=== PATIENT | female | born 1945 | race African-American/Black ===

== ENCOUNTER 2018-04-05 17:06 | Inpatient (IN) ==
[2018-04-05] MEDS ORDERED: Sodium Phosphate Inj 30 MMOL in Sodium Chlor 0.9% Inj 250 ML IV.SIG PRN (18:01)
[2018-04-05] MEDS ORDERED: Potassium Phosphate Inj 30 MMOL in Sodium Chlor 0.9% Inj 250 ML IV.SIG PRN (18:01)
[2018-04-05] MEDS ORDERED: Potassium Chloride Liq 20 MEQ/15 ML UDC PO PRN ×2 (18:01)
[2018-04-05] MEDS ORDERED: Magnesium Sulfate Inj 4 GM in Sodium Chlor 0.9% Inj 92 ML IV.SIG PRN (18:01)
[2018-04-05] MEDS ORDERED: Potassium Phosphate 500 MG Soluble Tablet PO PRN ×2 (18:01)
[2018-04-05] MEDS ORDERED: Magnesium Sulfate Inj 2 GM in Sodium Chlor 0.9% Inj 96 ML IV.SIG PRN (18:01)
[2018-04-05] MEDS ORDERED: Magnesium Oxide 400 MG Tablet PO PRN (18:01)
[2018-04-05] MEDS ORDERED: Potassium Chlor 40 mEq Premix 40 MEQ/100 ML PIGGYBACK IV.SIG PRN ×2 (18:01)
[2018-04-05] MEDS ORDERED: Bisacodyl 10 MG Supp RECTAL PRN (18:01)
[2018-04-05] MEDS ORDERED: Labetalol HCl Inj 100 MG/20 ML Vial IV.PUSH PRN (18:01)
[2018-04-05] MEDS ORDERED: Acetaminophen 325 MG Tablet PO PRN (18:01)
[2018-04-05] MEDS ORDERED: Metoprolol Inj 5 MG/5 ML Vial IV.PUSH PRN (18:01)
[2018-04-05] MEDS ORDERED: Dextrose 50% in Water 50 ML Vial IV.PUSH PRN (18:01)
[2018-04-05] MEDS ORDERED: niCARdipine Inj 25 MG in Sodium Chlor 0.9% Inj 240 ML IV.CONT PRN (18:15)
--- NOTE | 2018-04-05 18:43 | P.HPCC ---
History of Present Illness Service: Critical care medicine Primary Care Physician: UNKNOWN Chief Complaint: weakness History of Present Illness: 73yF with history of HTN but does not take any meds who presented with new acute onset right arm and leg weakness and mild confusion to OSH. Found to have hyperdense area on head CT concerning for aneurysm vs. localized spontaneous SAH. 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 Transferred emergently to [facility] for neurosurgery consultation. On arrival to our facility, she had a SBP of 203 mmHg. She was immediately started on nicardipine infusion with prn labetalol to bring this under 130 mmHg. Patient denies chest pain, sob, fever, chills, nausea , vomiting. does state her sister had a brain aneurysm that ruptured. remainder ROS negative. PMHx: HTN, uncontrolled, no meds PSHx: hysterectomy, BTL FHx: sister with cerebral aneurysm, ruptured Inpatient Certification: I certify that the inpatient services were ordered in accordance with Medicare regulations governing the order. This includes certification that hospital inpatient services are reasonable and necessary and in the case of services not specified as inpatient-only under 42 CFR 419.22(n), that they are appropriately provided as inpatient services in accordance to with the 2-midnight benchmark under 43 CFR 412.3(e) Estimated Total Length of Stay (Days): 7 Plans for Post Hospital Care: Not yet determined Review of Systems All other systems reviewed negative except as stated in [facility]PI [facility] - History History Provided By: Patient, Family Member, Medical Record - Social History I have reviewed the patient's Social History: Yes Medications and Allergies Active Medications: Active Medications Acetaminophen (Tylenol) 650 mg PO Q6H PRN PRN Reason: TEMPERATURE > 101 F Albuterol (Duoneb Neb (Prn)) 1 ampul NEB Q2HR NEB PRN PRN Reason: WHEEZING Bisacodyl (Dulcolax Supp) 10 mg RECTAL DAILY PRN PRN Reason: if no BM in last 24h Chlorhexidine Gluconate (Chlorhexidine 2% Cloth) 3 pack TOPICAL DAILY@0400 THEA Stop: 04/11/18 03:59 Chlorhexidine Gluconate (Chlorhexidine 2% Cloth) 3 pack TOPICAL DAILY@0400 PRN PRN Reason: Extra cloth needed Stop: 04/11/18 03:59 Dextrose (D50w Vial) 50 ml IV.PUSH UNSCH PRN PRN Reason: PER HYPOGLYCEMIA PROTOCOL Glucagon (Glucagon Inj) 1 mg OTHER PRN PRN PRN Reason: for Hypoglycemia Protocol Hydralazine HCl (Apresoline Inj) 10 mg IV.PUSH Q30M PRN PRN Reason: sbp > 160, dbp > 95 Magnesium Sulfate 4 gm/ Sodium (Chloride) 100 mls @ 50 mls/hr IV.SIG UNSCH PRN PRN Reason: For Magnesium 0.9 - 1.1 mg/dL Magnesium Sulfate 2 gm/ Sodium (Chloride) 100 mls @ 50 mls/hr IV.SIG UNSCH PRN PRN Reason: For Magnesium 1.2 - 1.6 mg/dL Nicardipine HCl 25 mg/ Sodium (Chloride) 250 mls @ 150 mls/hr IV.CONT TITRATE PRN; Protocol PRN Reason: Per Protocol Sodium Chloride (Ns Inj) 1,000 mls @ 84 mls/hr IV.CONT .[id number] THEA Potassium Chloride (Kcl 20 Meq Premix Inj) 20 meq in 100 mls @ 50 mls/hr IV.SIG Q2H PRN PRN Reason: For Potassium 3.3 - 3.5 mEq/L Potassium Chloride (Kcl 40 Meq Premix Inj) 40 meq in 100 mls @ 25 mls/hr IV.SIG UNSCH PRN PRN Reason: For Potassium 3.3 - 3.5 mEq/L Potassium Chloride (Kcl 20 Meq Premix Inj) 20 meq in 100 mls @ 50 mls/hr IV.SIG Q2H PRN PRN Reason: For Potassium 2.8 - 3.2 mEq/L Sodium Phosphate 30 mmol/ (Sodium Chloride) 260 mls @ 42 mls/hr IV.SIG UNSCH PRN PRN Reason: For Phosphorus < 2.5 mg/dL Potassium Chloride (Kcl 40 Meq Premix Inj) 40 meq in 100 mls @ 25 mls/hr IV.SIG Q2H PRN PRN Reason: For Potassium 2.8 - 3.2 mEq/L Potassium Phosphate 30 mmol/ (Sodium Chloride) 260 mls @ 42 mls/hr IV.SIG UNSCH PRN PRN Reason: SEE LABEL COMMENTS Insulin Human Regular (Novolin R Correctional Sugar Inj) 0 units SQ Q6HR THEA; Protocol Labetalol HCl (Trandate Inj) 20 mg IV.PUSH Q20M PRN PRN Reason: sbp > 160 or DBP > 95 Lactulose (Lactulose Liq) 30 ml PO BID THEA Magnesium Oxide (Mag-Ox) 800 mg PO UNSCH PRN PRN Reason: For Magnesium 1.2 - 1.6 mg/dL Metoprolol Tartrate (Lopressor Inj) 5 mg IV.PUSH Q5M PRN PRN Reason: HR > 110 Ondansetron HCl (Zofran Inj) 4 mg IV.PUSH Q6H PRN PRN Reason: NAUSEA OR VOMITING Polyethylene Glycol (Miralax) 17 gm PO BID THEA Potassium Chloride (Kcl Liq) 40 meq PO UNSCH PRN PRN Reason: Potassium level 3.3-3.5 mEq/L Potassium Chloride (Kcl Liq) 40 meq PO UNSCH PRN PRN Reason: POTASSIUM LESS THAN 3.5 Potassium Phosphate (K-Phos Original) 2,000 mg PO Q4H PRN PRN Reason: Phosphorus Less Than 2.5 mg/dL Potassium Phosphate (K-Phos Original) 2,000 mg PO UNSCH PRN PRN Reason: SEE LABEL COMMENTS Senna/Docusate Sodium (Karen-Colace) 1 tab PO BID THEA Sodium Chloride (Ns Flush) 2 ml IV.FLUSH UNSCH PRN PRN Reason: FLUSH AFTER USING IV ACCESS Allergies Allergy/AdvReac Type Severity Reaction Status Date / Time morphine Allergy Severe NAUSEA/VOMI Unverified 10/02/16 13:37 TING tobramycin Allergy Severe Swelling Unverified 10/02/16 13:37 Exam Vital signs: Intake & Output 04/04/18 04/05/18 04/05/18 18:59 06:59 18:59 Weight 74.5 kg Other: Weight On Admission 74.5 kg Narrative: gen: elderly female, sitting in bed. heent: nc. at. perrl. mmm. neck: no jvd. trachea midline. chest: equal chest rise. nc o2. cv: normal rate of 83, regular rhythm. sinus. sbp initially 203 mmHg, I remained at bedside until it was < 130 mmHg with nicardipine infusion. abd: soft, nontender, nondistended. no guarding. extr: distal pulses 2+. no edema. neuro: RASS 0. MAIRA 3/5 in the right upper and lower extremities. 5/5 in left upper and lower extremities. sensation grossly intact. Caprini VTE Risk Assessment Caprini VTE Risk Assessment: Moderate/High Risk (score >= 2) VTE Pharmacological Exception Reason: Intracranial lesions Caprini Risk Assessment Model: Point Value = 1 Point Value = 2 Point Value = 3 Point Value = 5 Age 41-60 Minor surgery BMI > 25 kg/m2 Swollen legs Varicose veins or History of unexplained or recurrent spontaneous Oral contraceptives or hormone replacement Sepsis (< 1 month) Serious lung disease, including pneumonia (< 1 month) Abnormal pulmonary function Acute myocardial infarction Congestive heart failure (< 1 month) History of inflammatory bowel disease Medical patient at bed rest Age 61-74 Arthroscopic surgery Major open surgery (> 45 min) Laparoscopic surgery (> 45 min) Malignancy Confined to bed (> 72 hours) Immobilizing plaster cast Central venous access Age >= 75 History of VTE Family history of VTE Factor V Leiden Prothrombin [id number] Lupus anticoagulant Anticardiolipin antibodies Elevated serum homocysteine Heparin-induced thrombocytopenia Other congenital or acquired thrombophilia Stroke (< 1 month) Elective arthroplasty Hip, pelvis, or leg fracture Acute spinal cord injury (< 1 month) Prophylaxis Regimen: Total Risk Factor Score Risk Level Prophylaxis Regimen 0-1 Low Early ambulation 2 Moderate Order ONE of the following: *Sequential Compression Device (SCD) *Heparin 5000 units SQ BID 3-4 Higher Order ONE of the following medications: *Heparin 5000 units SQ TID *Enoxaparin/Lovenox 40 mg SQ daily (WT < 150 kg, CrCl > 30 mL/min) *Enoxaparin/Lovenox 30 mg SQ daily (WT < 150 kg, CrCl > 10-29 mL/min) *Enoxaparin/Lovenox 30 mg SQ BID (WT < 150 kg, CrCl > 30 mL/min) AND/OR *Sequential Compression Device (SCD) 5 or more Highest Order ONE of the following medications: *Heparin 5000 units SQ TID (Preferred with Epidurals) *Enoxaparin/Lovenox 40 mg SQ daily (WT < 150 kg, CrCl > 30 mL/min) *Enoxaparin/Lovenox 30 mg SQ daily (WT < 150 kg, CrCl > 10-29 mL/min) *Enoxaparin/Lovenox 30 mg SQ BID (WT < 150 kg, CrCl > 30 mL/min) AND *Sequential Compression Device (SCD) Assessment and Plan - Assessment and Plan Plan: Assessment: 73yF with new right-sided weakness and YAQUELIN aneurysm with venous sinus thrombosis. Critically ill with high risk for subarachnoid hemorrhage and . Right-sided weakness left 5.3mm YAQUELIN aneurysm right venous sinus thrombosis right internal jugular thrombosis Hypertensive emergency Plan: - new weaknesses are concerning and are worsening. repeat CTA head/neck with CTV - cardene and labetalol prn for goal sbp < 150 mmhg - q1h neuro checks - hold on anticoagulation until further imaging studies. - OSH CT perfusion negative. - nsgy consulted: Dr. Alexander Admit to ICU. Critically ill with new neuro deficits. Critical care time: 40 minutes, exclusive of separately billable procedures. Procedures - Arterial Line Time out performed: Yes Size (Gauge): 20 Technique used: direct puncture technique Post-Procedure: line sutured into place Patient tolerated procedure: well Complications: none Site: left
[2018-04-05] MEDS: Insulin NovoLIN Regular Correctional Sugar Inj SQ SCH (18:50)
[2018-04-05] MEDS: Sod Chloride 0.9% Inj 1,000 ML IV.CONT SCH (18:51)
[2018-04-05] MEDS ORDERED: Labetalol HCl Inj 20 MG/4 ML Vial ONE ×2 (18:56→19:34)
--- NOTE | 2018-04-05 19:42 | P.CONNS ---
History of Present Illness Service: Neurosurgery Consult date: 04/05/18 Requesting Physician: Chris Freeman Reason for Consult: aneurysm, right sided weakness Primary Care Provider: UNKNOWN Chief Complaint: weakness History of Present Illness: I was asked by Dr. Freeman to see and evaluate 73yF who presented to OSH with new acute onset right arm and leg weakness and mild confusion. 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 Transferred emergently to [facility] for neurosurgery consultation. On arrival to our facility, she had a SBP of 203 mmHg. She was immediately started on nicardipine infusion with prn labetalol to bring this under 130 mmHg. Patient denies chest pain, sob, fever, chills, nausea, vomiting. does state her sister had a brain aneurysm that ruptured. Review of Systems All other systems reviewed negative except as stated in HPI [facility] - History History Provided By: Patient, Family Member, Medical Record Medications and Allergies Active Medications: Active Medications Acetaminophen (Tylenol) 650 mg PO Q6H PRN PRN Reason: TEMPERATURE > 101 F Albuterol (Duoneb Neb (Prn)) 1 ampul NEB Q2HR NEB PRN PRN Reason: WHEEZING Bisacodyl (Dulcolax Supp) 10 mg RECTAL DAILY PRN PRN Reason: if no BM in last 24h Chlorhexidine Gluconate (Chlorhexidine 2% Cloth) 3 pack TOPICAL DAILY@0400 THEA Stop: 04/11/18 03:59 Chlorhexidine Gluconate (Chlorhexidine 2% Cloth) 3 pack TOPICAL DAILY@0400 PRN PRN Reason: Extra cloth needed Stop: 04/11/18 03:59 Dextrose (D50w Vial) 50 ml IV.PUSH UNSCH PRN PRN Reason: PER HYPOGLYCEMIA PROTOCOL Glucagon (Glucagon Inj) 1 mg OTHER PRN PRN PRN Reason: for Hypoglycemia Protocol Hydralazine HCl (Apresoline Inj) 10 mg IV.PUSH Q30M PRN PRN Reason: sbp > 160, dbp > 95 Magnesium Sulfate 4 gm/ Sodium (Chloride) 100 mls @ 50 mls/hr IV.SIG UNSCH PRN PRN Reason: For Magnesium 0.9 - 1.1 mg/dL Magnesium Sulfate 2 gm/ Sodium (Chloride) 100 mls @ 50 mls/hr IV.SIG UNSCH PRN PRN Reason: For Magnesium 1.2 - 1.6 mg/dL Nicardipine HCl 25 mg/ Sodium (Chloride) 250 mls @ 150 mls/hr IV.CONT TITRATE PRN; Protocol PRN Reason: Per Protocol Last Admin: 04/05/18 18:49 Dose: 15 mg/hr, 150 mls/hr Sodium Chloride (Ns Inj) 1,000 mls @ 84 mls/hr IV.CONT .[id number] [facility] Last Admin: 04/05/18 18:51 Dose: 84 mls/hr Potassium Chloride (Kcl 20 Meq Premix Inj) 20 meq in 100 mls @ 50 mls/hr IV.SIG Q2H PRN PRN Reason: For Potassium 3.3 - 3.5 mEq/L Potassium Chloride (Kcl 40 Meq Premix Inj) 40 meq in 100 mls @ 25 mls/hr IV.SIG UNSCH PRN PRN Reason: For Potassium 3.3 - 3.5 mEq/L Potassium Chloride (Kcl 20 Meq Premix Inj) 20 meq in 100 mls @ 50 mls/hr IV.SIG Q2H PRN PRN Reason: For Potassium 2.8 - 3.2 mEq/L Sodium Phosphate 30 mmol/ (Sodium Chloride) 260 mls @ 42 mls/hr IV.SIG UNSCH PRN PRN Reason: For Phosphorus < 2.5 mg/dL Potassium Chloride (Kcl 40 Meq Premix Inj) 40 meq in 100 mls @ 25 mls/hr IV.SIG Q2H PRN PRN Reason: For Potassium 2.8 - 3.2 mEq/L Potassium Phosphate 30 mmol/ (Sodium Chloride) 260 mls @ 42 mls/hr IV.SIG UNSCH PRN PRN Reason: SEE LABEL COMMENTS Insulin Human Regular (Novolin R Correctional Sugar Inj) 0 units SQ Q6HR [facility]; Protocol Last Admin: 04/05/18 18:50 Dose: Not Given Labetalol HCl (Trandate Inj) 20 mg IV.PUSH Q20M PRN PRN Reason: sbp > 160 or DBP > 95 Lactulose (Lactulose Liq) 30 ml PO BID [facility] Magnesium Oxide (Mag-Ox) 800 mg PO UNSCH PRN PRN Reason: For Magnesium 1.2 - 1.6 mg/dL Metoprolol Tartrate (Lopressor Inj) 5 mg IV.PUSH Q5M PRN PRN Reason: HR > 110 Ondansetron HCl (Zofran Inj) 4 mg IV.PUSH Q6H PRN PRN Reason: NAUSEA OR VOMITING Last Admin: 04/05/18 18:48 Dose: 4 mg Polyethylene Glycol (Miralax) 17 gm PO BID THEA Potassium Chloride (Kcl Liq) 40 meq PO UNSCH PRN PRN Reason: Potassium level 3.3-3.5 mEq/L Potassium Chloride (Kcl Liq) 40 meq PO UNSCH PRN PRN Reason: POTASSIUM LESS THAN 3.5 Potassium Phosphate (K-Phos Original) 2,000 mg PO Q4H PRN PRN Reason: Phosphorus Less Than 2.5 mg/dL Potassium Phosphate (K-Phos Original) 2,000 mg PO UNSCH PRN PRN Reason: SEE LABEL COMMENTS Senna/Docusate Sodium (Karen-Colace) 1 tab PO BID THEA Sodium Chloride (Ns Flush) 2 ml IV.FLUSH UNSCH PRN PRN Reason: FLUSH AFTER USING IV ACCESS Allergies Allergy/AdvReac Type Severity Reaction Status Date / Time morphine Allergy Severe NAUSEA/VOMI Unverified 10/02/16 13:37 TING tobramycin Allergy Severe Swelling Unverified 10/02/16 13:37 Exam Vital signs: Intake & Output 04/05/18 04/05/18 04/06/18 06:59 18:59 06:59 Weight 74.5 kg Other: Weight On Admission 74.5 kg - Routine HEENT Exam Head: Present: normocephalic, atraumatic Eye: Present: EOMI, PERRL, normal accommodation ENT: Present: mucous membranes moist, oropharynx clear - Routine Neck Exam Present: full ROM, trachea midline - Routine Respiratory Exam Present: CTA bilaterally - Routine Cardiovascular Exam Present: RRR - Routine Abdominal Exam Present: soft, normoactive bowel sounds - Routine Extremities Exam Present: full ROM, pulses intact, normal capillary refill - Routine Neurological Exam Eyes open spontaneously Pupils react CNII-XII: intact Mildly aphasic Motor: Right hemiparesis 3/5 Snesory: decreased LT, decreased PP Cerebellum: WNL - Detailed Neurological Exam: Coma Scale Eye Opening: Spontaneous Verbal Response: Words Motor Response: Obey commands Benita Coma Scale Total: 13 - Routine Psychiatric Exam Present: unable to assess Results - Laboratory Findings Abnormal lab findings: Abnormal Labs 04/05/18 18:48 POC Glucose 121 H - Diagnostic Findings EKG: report reviewed, image reviewed Additional findings: Head CT and CTA Assessment and Plan - Plan 73 yo female with progressively worsening right sided weakness c/w stroke in evolution CTA shows incidental left distal anterior cerebral aneurysm, doubt focal SAH Admit to ICU HOB to 30 degrees Neuro checks q1hr STAT CTA and CTV to evaluate for arterial occlusion as well as possible transverse sinus thrombosis IR consult for stroke Will follow
--- NOTE | 2018-04-05 20:46 | CT ---
EXAM DATE: 04/05/2018 8:32 PM EST AGE/SEX: 73 years / Female INDICATIONS: Occlusion. CLINICAL DATA: This is the patient's initial encounter. Patient reports that signs and symptoms have been present for 1 day and indicates a pain score of Nonresponsive. MEDICAL/SURGICAL HISTORY: Non-responsive. Non-responsive. RADIATION DOSE: 52.83 CTDI (mGy) COMPARISON: C, CTA HEAD W CONTRAST W 3D, 04/05/2018. . TECHNIQUE: CT of the head without contrast. Using automated exposure control and adjustment of the mA and/or kV according to patient size, radiation dose was kept as low as reasonably achievable to ob tain optimal diagnostic quality images. DICOM format image data is available electronically for revi ew and comparison. FINDINGS: Cerebrum: The ventricles are normal for age. No evidence of midline shift, mass lesion, hemorrhage or acute infarction. No extraaxial fluid collections are seen. Posterior Fossa: The cerebellum and brainstem are intact. The 4th ventricle is midline. The cerebe llopontine angle is unremarkable. Extracranial: The visualized portion of the orbits is intact. Skull: The calvaria is intact. No evidence of skull fracture. CONCLUSION: 1. No acute findings. Chronic white matter ischemic changes. . . Electronically signed by: Deacon Piper MD Board Certified Radiologist 04/05/2018 8:45 PM EST
--- NOTE | 2018-04-05 20:51 | CT ---
EXAM DATE: 04/05/2018 8:31 PM EST AGE/SEX: 73 years / Female INDICATIONS: Occlusion CLINICAL DATA: This is the patient's initial encounter. Patient reports that signs and symptoms have been present for 1 day and indicates a pain score of Nonresponsive. MEDICAL/SURGICAL HISTORY: Non-responsive. Non-responsive. RADIATION DOSE: 19.65 CTDI (mGy) ; Combined studies COMPARISON: No prior exams available for comparison. TECHNIQUE: Volumetric scanning was performed using a multirow detector CT scanner during bolus infus ion of 100 ml Omnipaque 350 (iohexol) nonionic water-soluble contrast as a cumulative dose for multi ple exams. The data was postprocessed with a variety of visualization algorithms including full-vol ume maximum intensity projection, multiplanar sliding thin-slab reformation, curved-planar reformatio n, and surface-rendering techniques. Using automated exposure control and adjustment of the mA and/o r kV according to patient size, radiation dose was kept as low as reasonably achievable to obtain opt imal diagnostic quality images. DICOM format image data is available electronically for review and c omparison. Percent stenosis is calculated using the diameter of the stenotic region over the diameter of the nor mal distal internal carotid artery. FINDINGS: The great vessel origins are patent. Both common carotid arteries are patent. There is flow in the in ternal carotid arteries within the neck bilaterally. No stenosis identified in the carotids bilateral ly. Mild atherosclerotic plaque formation in the carotid bifurcation Left vertebral artery is dominant. Basilar artery is patent. CONCLUSION: 1. Negative for carotid stenosis within the neck. No aneurysm or dissection. Both vertebral arteries are patent. Electronically signed by: Deacon Piper MD Board Certified Radiologist 04/05/2018 8:50 PM EST
--- NOTE | 2018-04-05 20:53 | CT ---
EXAM DATE: 04/05/2018 8:31 PM EST AGE/SEX: 73 years / Female INDICATIONS: Occlusion. CLINICAL DATA: This is the patient's initial encounter. Patient reports that signs and symptoms have been present for 1 day and indicates a pain score of Nonresponsive. MEDICAL/SURGICAL HISTORY: Non-responsive. Non-responsive. RADIATION DOSE: 19.65 CTDI (mGy) ; Combined studies COMPARISON: No prior exams available for comparison. TECHNIQUE: Volumetric scanning was performed using a multi-row detector CT scanner during bolus infu mariza of 100 ml Omnipaque 350 (iohexol) nonionic water-soluble contrast as a cumulative dose for mult iple exams. The data was post processed with a variety of visualization algorithms including full v olume maximum intensity projection, multi-planar sliding thin slab reformation, curved planar reforma tion, and surface rendering techniques. Using automated exposure control and adjustment of the mA an d/or kV according to patient size, radiation dose was kept as low as reasonably achievable to obtain optimal diagnostic quality images. DICOM format image data is available electronically for review an d comparison. FINDINGS: The anterior, middle and posterior cerebral arteries appear patent. Basilar artery is patent. No disc rete aneurysm or dissection. CONCLUSION: 1. No aneurysm or dissection identified in the intracranial vasculature. No discrete occlusions iden tified. Anterior, middle and posterior cerebral arteries appear patent. . . Electronically signed by: Deacon Piper MD Board Certified Radiologist 04/05/2018 8:52 PM EST
--- NOTE | 2018-04-05 21:27 | P.PNCC ---
Critical Care Event Note Code activated: No Narrative: CTA brain and neck repeated and reviewed with Dr. Alexander. No evidence of aneurysm rupture. No evidence of large vessel occlusion to be amenable to endovascular intervention for stroke. Not a candidate for systemic TPA due to time of onset. I discussed CT venous phase with Dr. Piper and there is no definite dural venous thrombosis. Neither presence of aneurysm or location of possible dural venous thrombosis would seem to explain her clinical symptoms. Will obtain MRI and MRV. In view of worsening clinical condition when BP was lowered to 112, will allow permissive hypertension. Although would typically allow permissive hypertension up to 220/120 in acute ischemic stroke, in this circumstance the risk of aneurysm rupture must be considered. In consideration of risk/benefit, would allow permissive hypertension in SBP 160-180 range (per discussion with ). Critical care time: less than 30 mins
[2018-04-05] MEDS: Polyethylene Glycol 3350 17 GM Packet PO SCH (22:26)
[2018-04-05] MEDS: Senna/Docusate Sodium 8.6/50 MG Tablet PO SCH (22:27)
[2018-04-06] MEDS: Insulin NovoLIN Regular Correctional Sugar Inj SQ SCH ×4 (01:35→18:15)
[2018-04-06] MEDS ORDERED: Chlorhexidine Gluconate 2% 1 Pack (2 Cloths) TOPICAL PRN (04:00)
[2018-04-06] MEDS: Chlorhexidine Gluconate 2% 1 Pack (2 Cloths) TOPICAL SCH (04:04)
[2018-04-06 05:40] LABS: Baso # (Auto) 0.1 th/mm3 (0.0-0.2); Baso % (Auto) 0.6 % (0.0-2.0); Eos % (Auto) 0.2 % (0.0-4.0); Hematocrit 42.3 % (35.0-46.0); Hemoglobin 14.3 gm/dL (11.6-15.3); Lymph # (Auto) 2.1 th/mm3 (1.0-4.8); Lymph % (Auto) 23.9 % (9.0-44.0); Mean Corpuscular HGB Conc 33.9 % (32.0-36.0); Mean Corpuscular Hemoglobin 30.1 pg (27.0-34.0); Mean Platelet Volume 8.6 fL (7.0-11.0); Mono # (Auto) 0.7 th/mm3 (0.0-0.9); Mono % (Auto) 8.4 % (0.0-8.0); Neut # (Auto) 5.9 th/mm3 (1.8-7.7); Neut % (Auto) 66.9 % (16.0-70.0); Platelet Count 201 th/mm3 (150-450); Red Blood Count 4.75 mil/mm3 (4.00-5.30); Red Cell Distribution Width 14.6 % (11.6-17.2); White Blood Count 8.8 th/mm3 (4.0-11.0)
[2018-04-06] MEDS: Sod Chloride 0.9% Inj 1,000 ML IV.CONT SCH ×2 (05:51→18:16)
[2018-04-06 06:01] LABS: Carbon Dioxide 28.3 meq/L (21.0-32.0); Magnesium 2.1 mg/dL (1.5-2.5); Potassium 3.2 meq/L (3.5-5.1)
[2018-04-06 06:02] LABS: Phosphorus 3.7 mg/dL (2.5-4.9)
--- NOTE | 2018-04-06 08:20 | P.PNNS ---
Subjective Interval history: 73yF who presented to OSH with new acute onset right arm and leg weakness and mild confusion. 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 Transferred emergently to [facility] for neurosurgery consultation. On arrival to our facility, she had a SBP of 203 mmHg. She was immediately started on nicardipine infusion with prn labetalol to bring this under 130 mmHg. Patient denies chest pain, sob , fever, chills, nausea, vomiting. does state her sister had a brain aneurysm that ruptured. F/U studies here confirm aneurysm, no evidence of sinus thrombosis. 04/06: still weak on the right. continue permissive hypertension. MRI pending. Physical Exam Vital signs: Vital Signs 04/05/18 17:36 04/05/18 17:39 04/05/18 17:47 Temperature Pulse Rate 78 79 Respiratory Rate 16 24 Blood Pressure 144/77 H 148/77 H 154/79 H Pulse Oximetry 98 96 04/05/18 17:50 04/05/18 17:53 04/05/18 17:56 Temperature Pulse Rate 77 85 78 Respiratory Rate 26 H 36 H 22 Blood Pressure 139/76 153/80 H 161/84 H Pulse Oximetry 98 100 97 04/05/18 17:59 04/05/18 18:00 04/05/18 18:02 Temperature Pulse Rate 78 79 76 Respiratory Rate 17 22 21 Blood Pressure 137/72 131/66 Pulse Oximetry 97 97 97 04/05/18 18:04 04/05/18 18:06 04/05/18 18:08 Temperature Pulse Rate 76 76 77 Respiratory Rate 20 22 22 Blood Pressure 127/70 126/62 121/69 Pulse Oximetry 97 97 99 04/05/18 18:10 04/05/18 18:12 04/05/18 18:14 Temperature Pulse Rate 72 80 79 Respiratory Rate 32 H 26 H 24 Blood Pressure 129/66 135/69 126/68 Pulse Oximetry 96 98 99 04/05/18 18:16 04/05/18 18:18 04/05/18 18:20 Temperature Pulse Rate 79 80 81 Respiratory Rate 25 H 20 19 Blood Pressure 128/68 146/65 H 156/60 H Pulse Oximetry 97 99 99 04/05/18 18:22 04/05/18 18:24 04/05/18 18:26 Temperature Pulse Rate 83 85 79 Respiratory Rate 18 24 22 Blood Pressure 121/66 124/69 117/59 L Pulse Oximetry 99 99 99 04/05/18 18:28 04/05/18 19:00 04/05/18 19:16 Temperature Pulse Rate 72 79 79 Respiratory Rate 22 20 20 Blood Pressure 106/57 L 112/84 119/84 Pulse Oximetry 97 97 96 04/05/18 19:23 04/05/18 19:46 04/05/18 20:00 Temperature 98.4 F Pulse Rate 73 76 Respiratory Rate 25 H 23 Blood Pressure 121/68 134/80 Pulse Oximetry 98 97 97 04/05/18 20:48 04/05/18 21:00 04/05/18 21:15 Temperature Pulse Rate 77 79 Respiratory Rate 21 21 Blood Pressure 150/82 H 147/82 H Pulse Oximetry 97 97 97 04/05/18 21:30 04/05/18 21:45 04/05/18 22:00 Temperature Pulse Rate 80 81 76 Respiratory Rate 22 21 15 Blood Pressure 157/89 H 159/89 H 150/78 H Pulse Oximetry 97 97 97 04/05/18 22:15 04/05/18 22:19 04/05/18 22:30 Temperature Pulse Rate 73 77 75 Respiratory Rate 17 16 Blood Pressure 144/83 H 148/90 H Pulse Oximetry 97 97 04/05/18 22:45 04/05/18 23:00 04/05/18 23:15 Temperature Pulse Rate 73 70 74 Respiratory Rate 21 21 17 Blood Pressure 157/88 H 155/85 H 140/82 Pulse Oximetry 97 96 96 04/05/18 23:30 04/05/18 23:45 04/06/18 00:00 Temperature 98.2 F Pulse Rate 69 68 68 Respiratory Rate 20 21 21 Blood Pressure 156/84 H 152/79 H 147/80 H Pulse Oximetry 96 96 96 04/06/18 00:15 04/06/18 00:30 04/06/18 00:45 Temperature Pulse Rate 74 69 69 Respiratory Rate 23 21 21 Blood Pressure 149/81 H 157/82 H 153/82 H Pulse Oximetry 97 97 97 04/06/18 01:00 04/06/18 01:15 04/06/18 01:30 Temperature Pulse Rate 65 61 62 Respiratory Rate 20 18 19 Blood Pressure 150/82 H 160/83 H 158/82 H Pulse Oximetry 97 97 97 04/06/18 01:45 04/06/18 02:00 04/06/18 02:15 Temperature Pulse Rate 65 61 62 Respiratory Rate 20 21 22 Blood Pressure 164/77 H 162/76 H 163/81 H Pulse Oximetry 97 96 96 04/06/18 02:30 04/06/18 02:45 04/06/18 03:00 Temperature Pulse Rate 62 59 L 68 Respiratory Rate 18 19 24 Blood Pressure 165/84 H 163/85 H 149/77 H Pulse Oximetry 97 96 96 04/06/18 03:15 04/06/18 03:30 04/06/18 03:45 Temperature Pulse Rate 63 64 56 L Respiratory Rate 19 24 18 Blood Pressure 169/84 H 172/86 H 179/83 H Pulse Oximetry 97 94 L 94 L 04/06/18 04:00 04/06/18 04:15 04/06/18 04:20 Temperature 98.4 F Pulse Rate 58 L 55 L 55 L Respiratory Rate 19 18 18 Blood Pressure 176/89 H 188/84 H 175/79 H Pulse Oximetry 94 L 94 L 95 04/06/18 04:31 04/06/18 05:00 04/06/18 05:01 Temperature Pulse Rate 60 62 62 Respiratory Rate 22 18 16 Blood Pressure 173/83 H 178/81 H Pulse Oximetry 94 L 96 97 04/06/18 05:31 04/06/18 05:48 04/06/18 06:00 Temperature Pulse Rate 60 60 59 L Respiratory Rate 21 21 19 Blood Pressure 188/83 H 180/81 H Pulse Oximetry 96 96 95 04/06/18 06:01 04/06/18 06:31 Temperature Pulse Rate 59 L 61 Respiratory Rate 19 20 Blood Pressure 173/83 H 181/82 H Pulse Oximetry 95 96 Intake & Output 04/05/18 04/06/18 04/06/18 18:59 06:59 18:59 Intake Total 500 / 500 Output Total 150 / 150 Balance 350 / 350 Weight 74.5 kg 74.4 kg Intake: IV 500 / 500 NS Inj 1,000 ML @ 84 mls/hr IV. 500 / 500 CONT .[id number] [facility] Rx#:[id number] Output: Urine 150 / 150 Other: # Incontinent Voids 3 Date of Last Bowel Movement 04/04/18 Weight On Admission 74.5 kg - Constitutional no acute distress, cooperative - Routine HEENT Exam Head: Present: normocephalic, atraumatic Eye: Present: PERRL, normal accommodation ENT: Present: mucous membranes moist, oropharynx clear - Routine Neck Exam Present: supple, full ROM, trachea midline - Routine Respiratory Exam Present: CTA bilaterally - Routine Cardiovascular Exam Present: irregular rhythm - Routine Abdominal Exam Present: soft, normoactive bowel sounds - Routine Extremities Exam Present: pulses intact, normal capillary refill Comments: Dense right hemiparesis - Routine Skin Exam Present: intact, warm, normal turgor - Routine Neurological Exam Eyes open spontaneously Pupils react CNII-XII: intact Mildly aphasic Motor: Right hemiparesis UE 2/5,LE 1/5 Snesory: decreased LT, decreased PP Cerebellum: WNL - Detailed Neurological Exam: Coma Scale Eye Opening: Spontaneous Verbal Response: Confused Motor Response: Obey commands Benita Coma Scale Total: 14 - Routine Psychiatric Exam Present: cooperative, unable to assess Assessment and Plan - Plan 73 yo female with progressively worsening right sided weakness c/w stroke in evolution CTA shows incidental left distal anterior cerebral aneurysm, doubt focal SAH Neuro exam a little worse, than on admission. 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
[2018-04-06] MEDS: Labetalol HCl Inj 20 MG/4 ML Vial IV.PUSH PRN ×2 (08:35→15:52)
[2018-04-06] MEDS: Senna/Docusate Sodium 8.6/50 MG Tablet PO SCH ×2 (09:17→21:36)
[2018-04-06] MEDS: Polyethylene Glycol 3350 17 GM Packet PO SCH ×2 (09:17→21:35)
--- NOTE | 2018-04-06 09:32 | P.PNCC ---
Subjective Subjective Remarks/Hospital Course: Hospital course: 73yF with history of HTN but does not take any meds who presented with new acute onset right arm and leg weakness and mild confusion to OSH. Found to have hyperdense area on head CT concerning for aneurysm vs. localized spontaneous SAH. 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 Transferred emergently to [facility] for neurosurgery consultation. On arrival to our facility, she had a SBP of 203 mmHg. She was immediately started on nicardipine infusion with prn labetalol to bring this under 130 mmHg. Patient denies chest pain, sob, fever, chills, nausea , vomiting. does state her sister had a brain aneurysm that ruptured. remainder ROS negative. overnight 04/05: CTA brain and neck repeated and reviewed with Dr. Alexander. No evidence of aneurysm rupture. No evidence of large vessel occlusion to be amenable to endovascular intervention for stroke. Not a candidate for systemic TPA due to time of onset. I discussed CT venous phase with Dr. Piper and there is no definite dural venous thrombosis. Neither presence of aneurysm or location of possible dural venous thrombosis would seem to explain her clinical symptoms. Will obtain MRI and MRV. In view of worsening clinical condition when BP was lowered to 112, will allow permissive hypertension. Although would typically allow permissive hypertension up to 220/120 in acute ischemic stroke, in this circumstance the risk of aneurysm rupture must be considered. In consideration of risk/benefit, would allow permissive hypertension in SBP 160- 180 range (per discussion with ). Subjective: 04/06: still weak on the right. permissive hypertension. MRI ordered and pending. Objective Vital Signs / I&O: Vital Signs 04/05/18 17:36 04/05/18 17:39 04/05/18 17:47 Temperature Pulse Rate 78 79 Respiratory Rate 16 24 Blood Pressure 144/77 H 148/77 H 154/79 H Pulse Oximetry 98 96 04/05/18 17:50 04/05/18 17:53 04/05/18 17:56 Temperature Pulse Rate 77 85 78 Respiratory Rate 26 H 36 H 22 Blood Pressure 139/76 153/80 H 161/84 H Pulse Oximetry 98 100 97 04/05/18 17:59 04/05/18 18:00 04/05/18 18:02 Temperature Pulse Rate 78 79 76 Respiratory Rate 17 22 21 Blood Pressure 137/72 131/66 Pulse Oximetry 97 97 97 04/05/18 18:04 04/05/18 18:06 04/05/18 18:08 Temperature Pulse Rate 76 76 77 Respiratory Rate 20 22 22 Blood Pressure 127/70 126/62 121/69 Pulse Oximetry 97 97 99 04/05/18 18:10 04/05/18 18:12 04/05/18 18:14 Temperature Pulse Rate 72 80 79 Respiratory Rate 32 H 26 H 24 Blood Pressure 129/66 135/69 126/68 Pulse Oximetry 96 98 99 04/05/18 18:16 04/05/18 18:18 04/05/18 18:20 Temperature Pulse Rate 79 80 81 Respiratory Rate 25 H 20 19 Blood Pressure 128/68 146/65 H 156/60 H Pulse Oximetry 97 99 99 04/05/18 18:22 04/05/18 18:24 04/05/18 18:26 Temperature Pulse Rate 83 85 79 Respiratory Rate 18 24 22 Blood Pressure 121/66 124/69 117/59 L Pulse Oximetry 99 99 99 04/05/18 18:28 04/05/18 19:00 04/05/18 19:16 Temperature Pulse Rate 72 79 79 Respiratory Rate 22 20 20 Blood Pressure 106/57 L 112/84 119/84 Pulse Oximetry 97 97 96 04/05/18 19:23 04/05/18 19:46 04/05/18 20:00 Temperature 36.9 C Pulse Rate 73 76 Respiratory Rate 25 H 23 Blood Pressure 121/68 134/80 Pulse Oximetry 98 97 97 04/05/18 20:48 04/05/18 21:00 04/05/18 21:15 Temperature Pulse Rate 77 79 Respiratory Rate 21 21 Blood Pressure 150/82 H 147/82 H Pulse Oximetry 97 97 97 04/05/18 21:30 04/05/18 21:45 04/05/18 22:00 Temperature Pulse Rate 80 81 76 Respiratory Rate 22 21 15 Blood Pressure 157/89 H 159/89 H 150/78 H Pulse Oximetry 97 97 97 04/05/18 22:15 04/05/18 22:19 04/05/18 22:30 Temperature Pulse Rate 73 77 75 Respiratory Rate 17 16 Blood Pressure 144/83 H 148/90 H Pulse Oximetry 97 97 04/05/18 22:45 04/05/18 23:00 02/16/19 23:15 Temperature Pulse Rate 73 70 74 Respiratory Rate 21 21 17 Blood Pressure 157/88 H 155/85 H 140/82 Pulse Oximetry 97 96 96 04/05/18 23:30 04/05/18 23:45 04/06/18 00:00 Temperature 36.8 C Pulse Rate 69 68 68 Respiratory Rate 20 21 21 Blood Pressure 156/84 H 152/79 H 147/80 H Pulse Oximetry 96 96 96 04/06/18 00:15 04/06/18 00:30 04/06/18 00:45 Temperature Pulse Rate 74 69 69 Respiratory Rate 23 21 21 Blood Pressure 149/81 H 157/82 H 153/82 H Pulse Oximetry 97 97 97 04/06/18 01:00 04/06/18 01:15 04/06/18 01:30 Temperature Pulse Rate 65 61 62 Respiratory Rate 20 18 19 Blood Pressure 150/82 H 160/83 H 158/82 H Pulse Oximetry 97 97 97 04/06/18 01:45 04/06/18 02:00 04/06/18 02:15 Temperature Pulse Rate 65 61 62 Respiratory Rate 20 21 22 Blood Pressure 164/77 H 162/76 H 163/81 H Pulse Oximetry 97 96 96 04/06/18 02:30 04/06/18 02:45 04/06/18 03:00 Temperature Pulse Rate 62 59 L 68 Respiratory Rate 18 19 24 Blood Pressure 165/84 H 163/85 H 149/77 H Pulse Oximetry 97 96 96 04/06/18 03:15 04/06/18 03:30 04/06/18 03:45 Temperature Pulse Rate 63 64 56 L Respiratory Rate 19 24 18 Blood Pressure 169/84 H 172/86 H 179/83 H Pulse Oximetry 97 94 L 94 L 04/06/18 04:00 04/06/18 04:15 04/06/18 04:20 Temperature 36.9 C Pulse Rate 58 L 55 L 55 L Respiratory Rate 19 18 18 Blood Pressure 176/89 H 188/84 H 175/79 H Pulse Oximetry 94 L 94 L 95 04/06/18 04:31 04/06/18 05:00 04/06/18 05:01 Temperature Pulse Rate 60 62 62 Respiratory Rate 22 18 16 Blood Pressure 173/83 H 178/81 H Pulse Oximetry 94 L 96 97 04/06/18 05:31 02/17/19 05:48 04/06/18 06:00 Temperature Pulse Rate 60 60 59 L Respiratory Rate 21 21 19 Blood Pressure 188/83 H 180/81 H Pulse Oximetry 96 96 95 04/06/18 06:01 04/06/18 06:31 Temperature Pulse Rate 59 L 61 Respiratory Rate 19 20 Blood Pressure 173/83 H 181/82 H Pulse Oximetry 95 96 Intake & Output 04/05/18 04/06/18 04/06/18 18:59 06:59 18:59 Intake Total 500 / 500 Output Total 150 / 150 Balance 350 / 350 Weight 74.5 kg 74.4 kg Intake: IV 500 / 500 NS Inj 1,000 ML @ 84 mls/hr IV. 500 / 500 CONT .[id number] [facility] Rx#:[id number] Output: Urine 150 / 150 Other: # Incontinent Voids 3 Date of Last Bowel Movement 04/04/18 Weight On Admission 74.5 kg Result Diagrams: 04/06/18 05:19 04/06/18 05:19 Objective Remarks: gen: elderly female, sitting in bed. heent: nc. at. perrl. mmm. neck: no jvd. trachea midline. chest: equal chest rise. nc o2. cv: normal rate, regular rhythm. sinus. sbp 170s. abd: soft, nontender, nondistended. no guarding. extr: distal pulses 2+. no edema. neuro: RASS 0. MAIRA 3/5 in the right upper and lower extremities. 5/5 in left upper and lower extremities. sensation grossly intact. new expressive aphasia since my initial exam (stable overnight. developed this last evening per neurosurgery). Assessment and Plan - Assessment and Plan Plan: Assessment: 73yF with new right-sided weakness and YAQUELIN aneurysm with venous sinus thrombosis. Critically ill with high risk for subarachnoid hemorrhage and . 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 Alexander Keep in ICU until MRI and further work-up is complete. Procedures - Arterial Line Size (Gauge): 20
[2018-04-06 09:55] LABS: Chol/HDL Ratio 3.98 Ratio; HDL Cholesterol 56.7 mg/dL (40.0-60.0)
[2018-04-06] MEDS: Aspirin 325 MG Tablet PO SCH (10:18)
[2018-04-06] MEDS: hydrALAZINE 50 MG Tablet PO SCH ×2 (10:18→18:14)
[2018-04-06] MEDS: Enoxaparin Inj 40 MG/0.4 ML Syringe SQ SCH (10:20)
[2018-04-06] MEDS ORDERED: Gadobutrol PF 7.5 MMOL/7.5 ML Vial (for RAD) IV.SIG ONE (10:20)
--- NOTE | 2018-04-06 10:49 | MR ---
EXAM DATE: 04/06/2018 10:28 AM EST AGE/SEX: 73 years / Female INDICATIONS: CVA. Thrombosis. CLINICAL DATA: This is the patient's initial encounter. Patient reports that signs and symptoms have been present for 2 days and indicates a pain score of 2/10. MEDICAL/SURGICAL HISTORY: Hypertension. Hysterectomy. COMPARISON: [facility], MRV HEAD W CONTRAST, 04/06/2018. [facility], CT HEAD W/O CONTRAST, 04/05/2018. C, C TA HEAD W CONTRAST W 3D, 04/05/2018. [facility], CTA NECK W CONTRAST W 3D, 04/05/2018. . TECHNIQUE: Multiplanar, multisequence examination of the brain was performed without contrast. FINDINGS: Cerebrum: Prominent FLAIR abnormality seen throughout the left frontal and left parietal parafalcine region consistent with infarct along the left anterior cerebral artery. The ventricles are normal for age. No evidence of midline shift, mass lesion or hemorrhage. No extraaxial fluid collections are seen. The pituitary gland and suprasellar cistern are normal in configuration. White Matter: Scattered T2 bright signal abnormalities are seen in the white matter. Posterior Fossa: The cerebellum and brainstem are intact. The 4th ventricle is midline. The cerebel lopontine angle is unremarkable. The cerebellar tonsils are normal in position. Diffusion Imaging: Restricted diffusion left frontal parietal lobes along the parafalcine region Extracranial: The visualized portions of the orbits and paranasal sinuses are unremarkable. CONCLUSION: 1. Multifocal acute infarcts along the left frontal parietal parafalcine region consistent with infa rct of the left anterior cerebral artery distribution. 2. No midline shift or mass effect. Electronically signed by: Juan Mckoy MD Board Certified Radiologist 04/06/2018 10:48 AM EST
--- NOTE | 2018-04-06 10:52 | MR ---
EXAM DATE: 04/06/2018 10:37 AM EST AGE/SEX: 73 years / Female INDICATIONS: CVA. Thrombosis. CLINICAL DATA: This is the patient's initial encounter. Patient reports that signs and symptoms have been present for 2 days and indicates a pain score of 2/10. MEDICAL/SURGICAL HISTORY: Hyperparathyroidism. Hysterectomy. COMPARISON: [facility], MR HEAD W/O CONTRAST, 04/06/2018. [facility], CTA HEAD W CONTRAST W 3D, 04/05/2018. . TECHNIQUE: MR cerebral venography is performed with 7cc ml Gadavist (gadobutrol) contrast (single ex am dose). Source images, 3D volume MIP, and sliding thin slab MIP reconstructions were reviewed. FINDINGS: There is excellent visualization of the major intracranial arteries out to the second-order branch ve ssels. There is no evidence for aneurysm, vessel truncation or stenosis, and no evidence for vascula r malformation. CONCLUSION: 1. No venous thrombosis Electronically signed by: Juan Mckoy MD Board Certified Radiologist 04/06/2018 10:50 AM EST
[2018-04-06 10:57] LABS: Hemoglobin A1c 5.7 % (4.3-6.0)
--- NOTE | 2018-04-06 15:46 | ECHRPT ---
Indication: CVA/TIA CONCLUSIONS Normal left ventricular size. Mild concentric left ventricular hypertrophy. Normal left ventricular systolic function and size with an ejection fraction of 60-65%. Trace mitral valve regurgitation. Aortic valve sclerosis is present. There is trace tricuspid valve regurgitation. The estimated pulmonary arterial pressure is 46.2 mmHg. BP: / HR: Rhythm: Sinus MEASUREMENTS (Male / Female) Normal Values Technical Quality:Fair 2D ECHO LV Diastolic Diameter PLAX 4.4 cm 4.2 - 5.9 / 3.9 - 5.3 cm LV Systolic Diameter PLAX 3.2 cm IVS Diastolic Thickness 1.1 cm 0.6 - 1.0 / 0.6 - 0.9 cm LVPW Diastolic Thickness 1.1 cm 0.6 - 1.0 / 0.6 - 0.9 cm LV Relative Wall Thickness 0.5 RV Internal Dim ED PLAX 2.4 cm LVOT Diameter 2.3 cm Aortic Root Diameter 3.1 cm DOPPLER AV Peak Velocity 149.0 cm/s AV Peak Gradient 8.9 mmHg AV Mean Gradient 5.0 mmHg AV Velocity Time Integral 26.9 cm LVOT Peak Velocity 101.3 cm/s LVOT Peak Gradient 4.1 mmHg LVOT Velocity Time Integral 20.1 cm AV Area Cont Eq vti 3.1 cm AV Area Cont Eq pk 2.8 cm Mitral E Point Velocity 97.2 cm/s Mitral A Point Velocity 135.0 cm/s Mitral E to A Ratio 0.7 LV E' Lateral Velocity 4.0 cm/s Mitral E to LV E' Lateral Ratio 24.3 LV E' Septal Velocity 4.4 cm/s Mitral E to LV E' Septal Ratio 22.1 TR Peak Velocity 301.0 cm/s TR Peak Gradient 36.2 mmHg Right Atrial Pressure 10.0 mmHg Pulmonary Artery Systolic Pressu 46.2 mmHg Right Ventricular Systolic Press 46.2 mmHg PV Peak Velocity 79.0 cm/s PV Peak Gradient 2.5 mmHg FINDINGS LEFT VENTRICLE Normal left ventricular size. Mild concentric left ventricular hypertrophy. The left ventricular systolic function is normal with an estimated ejection fraction in the range of 60-65%. RIGHT VENTRICLE Normal right ventricular size and systolic function. LEFT ATRIUM The left atrial size is normal. RIGHT ATRIUM The right atrial size is normal. ATRIAL SEPTUM No atrial level shunt is demonstrated by color flow Doppler interrogation. AORTA The aortic root and proximal ascending aorta are normal in size on limited imaging. MITRAL VALVE Trace mitral valve regurgitation. AORTIC VALVE Aortic valve sclerosis is present. TRICUSPID VALVE There is trace tricuspid valve regurgitation. The estimated pulmonary arterial pressure is 46.2 mmHg. PULMONARY VALVE No pulmonary valve regurgitation or stenosis. VESSELS The inferior vena cava was not well visualized. PERICARDIUM No pericardial effusion. Jamil Park MD, FACC, [facility] [place] (Electronically Signed) Final Date:06 April 2018 15:45
[2018-04-06] MEDS: Potassium Chlor 20 mEq Premix 20 MEQ/100 ML PIGGYBACK IV.SIG PRN (21:37)
[2018-04-06] MEDS: hydrALAZINE HCl Inj 20 MG/ML Vial IV.PUSH PRN (22:23)
[2018-04-07] MEDS: Potassium Chlor 20 mEq Premix 20 MEQ/100 ML PIGGYBACK IV.SIG PRN ×4 (00:49→07:02)
[2018-04-07] MEDS: Insulin NovoLIN Regular Correctional Sugar Inj SQ SCH ×4 (00:49→17:28)
[2018-04-07] MEDS: hydrALAZINE 25 MG Tablet PO SCH ×3 (02:05→17:48)
[2018-04-07 04:15] LABS: Baso # (Auto) 0.1 th/mm3 (0.0-0.2); Baso % (Auto) 0.6 % (0.0-2.0); Eos # (Auto) 0.1 th/mm3 (0.0-0.4); Eos % (Auto) 0.8 % (0.0-4.0); Hematocrit 39.5 % (35.0-46.0); Hemoglobin 13.3 gm/dL (11.6-15.3); Lymph # (Auto) 2.8 th/mm3 (1.0-4.8); Lymph % (Auto) 34.4 % (9.0-44.0); Mean Corpuscular HGB Conc 33.7 % (32.0-36.0); Mean Corpuscular Hemoglobin 30.8 pg (27.0-34.0); Mean Corpuscular Volume 91.4 fL (80.0-100.0); Mean Platelet Volume 8.9 fL (7.0-11.0); Mono # (Auto) 0.7 th/mm3 (0.0-0.9); Mono % (Auto) 8.2 % (0.0-8.0); Neut # (Auto) 4.5 th/mm3 (1.8-7.7); Platelet Count 187 th/mm3 (150-450); Red Blood Count 4.33 mil/mm3 (4.00-5.30); Red Cell Distribution Width 14.5 % (11.6-17.2); White Blood Count 8.1 th/mm3 (4.0-11.0)
[2018-04-07] MEDS: Chlorhexidine Gluconate 2% 1 Pack (2 Cloths) TOPICAL SCH (04:38)
[2018-04-07 05:04] LABS: Calcium 8.7 mg/dL (8.5-10.1); Carbon Dioxide 26.4 meq/L (21.0-32.0); Magnesium 1.9 mg/dL (1.5-2.5); Potassium 3.6 meq/L (3.5-5.1)
[2018-04-07] MEDS: Sod Chloride 0.9% Inj 1,000 ML IV.CONT SCH ×2 (06:12→17:38)
[2018-04-07] MEDS: Aspirin 325 MG Tablet PO SCH (09:09)
[2018-04-07] MEDS: Enoxaparin Inj 40 MG/0.4 ML Syringe SQ SCH (09:09)
[2018-04-07] MEDS: Senna/Docusate Sodium 8.6/50 MG Tablet PO SCH ×2 (09:09→21:30)
[2018-04-07] MEDS: Polyethylene Glycol 3350 17 GM Packet PO SCH ×2 (09:09→21:30)
--- NOTE | 2018-04-07 10:45 | P.PNNS ---
Subjective Interval history: neurologically stable overnight, stable right side weakness, remains awake, alert <Shima Jones - Last Filed: 04/07/18 10:49> Physical Exam Vital signs: Vital Signs 04/06/18 11:00 04/06/18 12:00 04/06/18 12:33 Temperature Pulse Rate 58 L 64 68 Respiratory Rate 20 21 23 Blood Pressure 175/91 H Pulse Oximetry 98 99 100 04/06/18 13:00 04/06/18 13:07 04/06/18 13:12 Temperature 98.2 F Pulse Rate 66 61 59 L Respiratory Rate 22 20 20 Blood Pressure 183/87 H 177/87 H Pulse Oximetry 99 99 98 04/06/18 14:00 04/06/18 15:00 04/06/18 15:33 Temperature Pulse Rate 65 64 66 Respiratory Rate 25 H 26 H 26 H Blood Pressure 211/96 H Pulse Oximetry 98 100 100 04/06/18 15:46 04/06/18 15:49 04/06/18 16:00 Temperature 97.9 F Pulse Rate 65 64 71 Respiratory Rate 24 23 21 Blood Pressure 205/87 H 198/93 H Pulse Oximetry 100 100 100 04/06/18 16:53 04/06/18 17:00 04/06/18 19:00 Temperature Pulse Rate 58 L 59 L 69 Respiratory Rate 20 22 25 H Blood Pressure 180/87 H 186/82 H Pulse Oximetry 97 98 98 04/06/18 19:45 04/06/18 20:00 04/06/18 20:15 Temperature 98.3 F Pulse Rate 71 74 72 Respiratory Rate 24 20 24 Blood Pressure 160/74 H 160/77 H 156/72 H Pulse Oximetry 99 99 98 04/06/18 20:30 04/06/18 20:45 04/06/18 20:56 Temperature Pulse Rate 73 70 Respiratory Rate 20 23 Blood Pressure 155/74 H 152/73 H Pulse Oximetry 98 98 98 04/06/18 21:00 04/06/18 21:15 04/06/18 21:30 Temperature Pulse Rate 75 69 70 Respiratory Rate 20 23 23 Blood Pressure 141/80 H 153/73 H 168/79 H Pulse Oximetry 99 98 98 04/06/18 21:45 04/06/18 22:00 04/06/18 22:15 Temperature Pulse Rate 70 68 69 Respiratory Rate 24 20 23 Blood Pressure 172/79 H 169/75 H 171/79 H Pulse Oximetry 99 100 99 04/06/18 22:45 04/06/18 23:00 04/06/18 23:15 Temperature Pulse Rate 70 77 74 Respiratory Rate 23 25 H 26 H Blood Pressure 177/89 H 160/79 H 159/77 H Pulse Oximetry 99 98 97 04/06/18 23:30 04/06/18 23:45 04/07/18 00:00 Temperature 98.3 F Pulse Rate 77 74 75 Respiratory Rate 25 H 24 21 Blood Pressure 172/82 H 174/83 H 167/78 H Pulse Oximetry 97 98 97 04/07/18 00:15 04/07/18 00:30 04/07/18 01:00 Temperature Pulse Rate 73 71 67 Respiratory Rate 22 20 20 Blood Pressure 160/74 H 163/78 H 175/76 H Pulse Oximetry 98 97 98 04/07/18 01:15 04/07/18 01:30 04/07/18 02:00 Temperature Pulse Rate 69 70 66 Respiratory Rate 19 19 19 Blood Pressure 171/81 H 174/86 H 169/79 H Pulse Oximetry 96 97 97 04/07/18 03:00 04/07/18 04:00 04/07/18 05:00 Temperature Pulse Rate 89 83 76 Respiratory Rate 25 H 24 25 H Blood Pressure 154/70 H 155/72 H 161/70 H Pulse Oximetry 97 97 97 04/07/18 05:10 04/07/18 05:30 04/07/18 06:00 Temperature 98.6 F Pulse Rate 75 78 Respiratory Rate 20 25 H Blood Pressure 162/76 H 163/80 H Pulse Oximetry 97 97 04/07/18 07:00 04/07/18 07:45 04/07/18 08:00 Temperature 98.5 F Pulse Rate 76 81 Respiratory Rate 22 22 Blood Pressure 158/79 H 164/79 H Pulse Oximetry 98 97 98 04/07/18 09:00 04/07/18 10:00 Temperature Pulse Rate 80 98 H Respiratory Rate 22 24 Blood Pressure 169/93 H 155/71 H Pulse Oximetry 98 99 Intake & Output 04/06/18 04/07/18 04/07/18 18:59 06:59 18:59 Intake Total 1000 / 1000 1600 / 1600 200 / 200 Output Total 300 / 300 Balance 1000 / 1000 1300 / 1300 200 / 200 Weight 77.7 kg Intake: IV 1000 / 1000 1200 / 1200 200 / 200 NS Inj 1,000 ML @ 84 mls/hr IV. 1000 / 1000 1000 / 1000 CONT .[id number] THEA Rx#:[id number] KCl 20 mEq Premix Inj 20 meq In 200 / 200 200 / 200 100 ml @ 50 mls/hr IV.SIG Q2H PRN Rx#:[id number] Oral 400 / 400 Output: Urine 300 / 300 Other: # Voids 1 Date of Last Bowel Movement 04/04/18 04/04/18 Narrative: Eyes open spontaneously Resting in bed comfortable in no acute distress Pupils react CNII-XII: intact Mildly aphasic Motor: Right hemiparesis UE 2/5,LE 1/5 Snesory: decreased LT, decreased PP <Shima Jones - Last Filed: 04/07/18 10:49> Vital signs: Vital Signs 04/06/18 23:00 04/06/18 23:15 04/06/18 23:30 Temperature Pulse Rate 77 74 77 Respiratory Rate 25 H 26 H 25 H Blood Pressure 160/79 H 159/77 H 172/82 H Pulse Oximetry 98 97 97 04/06/18 23:45 04/07/18 00:00 04/07/18 00:15 Temperature 98.3 F Pulse Rate 74 75 73 Respiratory Rate 24 21 22 Blood Pressure 174/83 H 167/78 H 160/74 H Pulse Oximetry 98 97 98 04/07/18 00:30 04/07/18 01:00 04/07/18 01:15 Temperature Pulse Rate 71 67 69 Respiratory Rate 20 20 19 Blood Pressure 163/78 H 175/76 H 171/81 H Pulse Oximetry 97 98 96 04/07/18 01:30 04/07/18 02:00 04/07/18 03:00 Temperature Pulse Rate 70 66 89 Respiratory Rate 19 19 25 H Blood Pressure 174/86 H 169/79 H 154/70 H Pulse Oximetry 97 97 97 04/07/18 04:00 04/07/18 05:00 04/07/18 05:10 Temperature 98.6 F Pulse Rate 83 76 Respiratory Rate 24 25 H Blood Pressure 155/72 H 161/70 H Pulse Oximetry 97 97 04/07/18 05:30 04/07/18 06:00 04/07/18 07:00 Temperature Pulse Rate 75 78 76 Respiratory Rate 20 25 H 22 Blood Pressure 162/76 H 163/80 H 158/79 H Pulse Oximetry 97 97 98 04/07/18 07:45 04/07/18 08:00 04/07/18 09:00 Temperature 98.5 F Pulse Rate 81 80 Respiratory Rate 22 22 Blood Pressure 164/79 H 169/93 H Pulse Oximetry 97 98 98 04/07/18 10:00 04/07/18 12:00 04/07/18 12:01 Temperature 98.0 F Pulse Rate 98 H 88 88 Respiratory Rate 24 24 Blood Pressure 155/71 H 157/72 H Pulse Oximetry 99 98 04/07/18 16:00 04/07/18 16:54 04/07/18 19:00 Temperature 98.1 F Pulse Rate 104 H 91 H 112 H Respiratory Rate 28 H 32 H Blood Pressure 181/90 H Pulse Oximetry 99 98 04/07/18 19:01 04/07/18 19:20 04/07/18 20:00 Temperature Pulse Rate 110 H 114 H Respiratory Rate 28 H 33 H Blood Pressure 171/79 H Pulse Oximetry 98 97 97 04/07/18 20:01 Temperature Pulse Rate 112 H Respiratory Rate 28 H Blood Pressure 174/81 H Pulse Oximetry 98 Intake & Output 04/07/18 04/07/18 04/08/18 06:59 18:59 06:59 Intake Total 1600 / 1600 1200 / 1200 Output Total 300 / 300 Balance 1300 / 1300 1200 / 1200 Weight 77.7 kg Intake: IV 1200 / 1200 1200 / 1200 NS Inj 1,000 ML @ 84 mls/hr IV. 1000 / 1000 1000 / 1000 CONT .[id number] THEA Rx#:[id number] KCl 20 mEq Premix Inj 20 meq In 200 / 200 200 / 200 100 ml @ 50 mls/hr IV.SIG Q2H PRN Rx#:[id number] Oral 400 / 400 Output: Urine 300 / 300 Other: # Voids 1 # Incontinent Voids 3 Date of Last Bowel Movement 04/04/18 # Bowel Movements 0 <Joey Alexander - Last Filed: 04/07/18 22:57> Assessment and Plan - Plan 73 yo female with progressively worsening right sided weakness c/w stroke in evolution CTA shows incidental left distal anterior cerebral aneurysm, doubt focal SAH Neuro exam a little worse, than on admission. MRI pending - needs full stroke work-up: 2d echo lipids a1c tele PT/OT/ST stroke navigator - permissive hypertension, sbp 160 - 180 mmHg - agree with hydralazine, labetalol for bp control - continue frequent neuro checks - start ASA and Lovenox for DVT prophylaxis - advance diet - SCDs Will continue to follow 04/07/2018 patient remains neurologically stable with dense right hemiparesis, continue with critical care management stroke rehab with physical, occupation, and speech therapy recommend follow up with Dr. Avery at [facility] in 2-3 months for aneurysm follow up will follow <Shima Jones - Last Filed: 04/07/18 10:49> - Attending Attestation Remains NEUROLOGICALLY STABLE I have personally seen and examined the patient, reviewed pertinent labs and imaging studies with the Neurosurgery team. I agree with Ms. Jones's ( Neurosurgery PA), assessment as well as plan of care. <Joey Alexander - Last Filed: 04/07/18 22:57> Procedures - Arterial Line Size (Gauge): 20 <Shima Jones - Last Filed: 04/07/18 10:49>
--- NOTE | 2018-04-07 11:04 | P.PNCC ---
Subjective Subjective Remarks/Hospital Course: Hospital course: 73yF with history of HTN but does not take any meds who presented with new acute onset right arm and leg weakness and mild confusion to OSH. Found to have hyperdense area on head CT concerning for aneurysm vs. localized spontaneous SAH. 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 Transferred emergently to [facility] for neurosurgery consultation. On arrival to our facility, she had a SBP of 203 mmHg. She was immediately started on nicardipine infusion with prn labetalol to bring this under 130 mmHg. Patient denies chest pain, sob, fever, chills, nausea , vomiting. does state her sister had a brain aneurysm that ruptured. remainder ROS negative. overnight 04/05: CTA brain and neck repeated and reviewed with Dr. Alexander. No evidence of aneurysm rupture. No evidence of large vessel occlusion to be amenable to endovascular intervention for stroke. Not a candidate for systemic TPA due to time of onset. I discussed CT venous phase with Dr. Piper and there is no definite dural venous thrombosis. Neither presence of aneurysm or location of possible dural venous thrombosis would seem to explain her clinical symptoms. Will obtain MRI and MRV. In view of worsening clinical condition when BP was lowered to 112, will allow permissive hypertension. Although would typically allow permissive hypertension up to 220/120 in acute ischemic stroke, in this circumstance the risk of aneurysm rupture must be considered. In consideration of risk/benefit, would allow permissive hypertension in SBP 160- 180 range (per discussion with ). Subjective: 04/06: still weak on the right. permissive hypertension. MRI ordered and pending. 04/07: doing well. stable for transfer to the floor. liberalize blood pressure goals. needs aggressive PT. probable inpatient rehab, awaiting PT recommendations. echo wnl. started on statin today. patient denies complaints and ROS otherwise negative. Objective Vital Signs / I&O: Vital Signs 04/06/18 11:00 04/06/18 12:00 04/06/18 12:33 Temperature Pulse Rate 58 L 64 68 Respiratory Rate 20 21 23 Blood Pressure 175/91 H Pulse Oximetry 98 99 100 04/06/18 13:00 04/06/18 13:07 04/06/18 13:12 Temperature 36.8 C Pulse Rate 66 61 59 L Respiratory Rate 22 20 20 Blood Pressure 183/87 H 177/87 H Pulse Oximetry 99 99 98 04/06/18 14:00 04/06/18 15:00 04/06/18 15:33 Temperature Pulse Rate 65 64 66 Respiratory Rate 25 H 26 H 26 H Blood Pressure 211/96 H Pulse Oximetry 98 100 100 04/06/18 15:46 04/06/18 15:49 04/06/18 16:00 Temperature 36.6 C Pulse Rate 65 64 71 Respiratory Rate 24 23 21 Blood Pressure 205/87 H 198/93 H Pulse Oximetry 100 100 100 04/06/18 16:53 04/06/18 17:00 04/06/18 19:00 Temperature Pulse Rate 58 L 59 L 69 Respiratory Rate 20 22 25 H Blood Pressure 180/87 H 186/82 H Pulse Oximetry 97 98 98 04/06/18 19:45 04/06/18 20:00 04/06/18 20:15 Temperature 36.8 C Pulse Rate 71 74 72 Respiratory Rate 24 20 24 Blood Pressure 160/74 H 160/77 H 156/72 H Pulse Oximetry 99 99 98 04/06/18 20:30 04/06/18 20:45 04/06/18 20:56 Temperature Pulse Rate 73 70 Respiratory Rate 20 23 Blood Pressure 155/74 H 152/73 H Pulse Oximetry 98 98 98 04/06/18 21:00 04/06/18 21:15 04/06/18 21:30 Temperature Pulse Rate 75 69 70 Respiratory Rate 20 23 23 Blood Pressure 141/80 H 153/73 H 168/79 H Pulse Oximetry 99 98 98 04/06/18 21:45 04/06/18 22:00 04/06/18 22:15 Temperature Pulse Rate 70 68 69 Respiratory Rate 24 20 23 Blood Pressure 172/79 H 169/75 H 171/79 H Pulse Oximetry 99 100 99 04/06/18 22:45 04/06/18 23:00 04/06/18 23:15 Temperature Pulse Rate 70 77 74 Respiratory Rate 23 25 H 26 H Blood Pressure 177/89 H 160/79 H 159/77 H Pulse Oximetry 99 98 97 04/06/18 23:30 04/06/18 23:45 04/07/18 00:00 Temperature 36.8 C Pulse Rate 77 74 75 Respiratory Rate 25 H 24 21 Blood Pressure 172/82 H 174/83 H 167/78 H Pulse Oximetry 97 98 97 04/07/18 00:15 04/07/18 00:30 04/07/18 01:00 Temperature Pulse Rate 73 71 67 Respiratory Rate 22 20 20 Blood Pressure 160/74 H 163/78 H 175/76 H Pulse Oximetry 98 97 98 04/07/18 01:15 04/07/18 01:30 04/07/18 02:00 Temperature Pulse Rate 69 70 66 Respiratory Rate 19 Blood Pressure 171/81 H 174/86 H 169/79 H Pulse Oximetry 96 97 97 04/07/18 03:00 04/07/18 04:00 04/07/18 05:00 Temperature Pulse Rate 89 83 76 Respiratory Rate 25 H 24 25 H Blood Pressure 154/70 H 155/72 H 161/70 H Pulse Oximetry 97 97 97 04/07/18 05:10 04/07/18 05:30 04/07/18 06:00 Temperature 37.0 C Pulse Rate 75 78 Respiratory Rate 20 25 H Blood Pressure 162/76 H 163/80 H Pulse Oximetry 97 97 04/07/18 07:00 04/07/18 07:45 04/07/18 08:00 Temperature 36.9 C Pulse Rate 76 81 Respiratory Rate 22 22 Blood Pressure 158/79 H 164/79 H Pulse Oximetry 98 97 98 04/07/18 09:00 04/07/18 10:00 Temperature Pulse Rate 80 98 H Respiratory Rate 22 24 Blood Pressure 169/93 H 155/71 H Pulse Oximetry 98 99 Intake & Output 04/06/18 04/07/18 04/07/18 18:59 06:59 18:59 Intake Total 1000 / 1000 1600 / 1600 200 / 200 Output Total 300 / 300 Balance 1000 / 1000 1300 / 1300 200 / 200 Weight 77.7 kg Intake: IV 1000 / 1000 1200 / 1200 200 / 200 NS Inj 1,000 ML @ 84 mls/hr IV. 1000 / 1000 1000 / 1000 CONT .[id number] THEA Rx#:[id number] KCl 20 mEq Premix Inj 20 meq In 200 / 200 200 / 200 100 ml @ 50 mls/hr IV.SIG Q2H PRN Rx#:[id number] Oral 400 / 400 Output: Urine 300 / 300 Other: # Voids 1 Date of Last Bowel Movement 02/15/19 02/15/19 Result Diagrams: 04/07/18 03:16 04/07/18 03:16 Objective Remarks: gen: elderly female, sitting in bed. heent: nc. at. perrl. mmm. neck: no jvd. trachea midline. chest: equal chest rise. nc o2. cv: normal rate, regular rhythm. sinus. sbp 150s. abd: soft, nontender, nondistended. no guarding. extr: distal pulses 2+. no edema. neuro: RASS 0. MAIRA 3/5 in the right upper and lower extremities. 5/5 in left upper and lower extremities. sensation grossly intact. stable expressive aphasia. Assessment and Plan - Assessment and Plan Plan: Assessment: 73yF with new right-sided weakness and left YAQUELIN distribution CVA, also with YAQUELIN aneurysm. Right-sided weakness Acute CVA left 5.3mm YAQUELIN aneurysm Hypertensive emergency Plan: - MRI pending - needs full work-up for stroke: 2d echo- wnl. lipids- elevated, started statin. a1c- 5.7 tele- NSR PT/OT/ST- pending. stroke navigator - liberalize SBP goals to normotension. - hydralazine, labetalol for bp control - continue hydralazine 50mg po q8h - continue neuro checks - ASA and Lovenox for DVT prophylaxis - advance diet per speech rec's. - SCDs - nsgy consulted: Dr. Alexander. they are following for stroke recommendations. stable to transfer out of ICU. start work-up for discharge planning- likely inpatient rehab, but pending PT eval. consult hospitalist service to assume care. Procedures - Arterial Line Size (Gauge): 20
[2018-04-07] MEDS: hydrALAZINE HCl Inj 20 MG/ML Vial IV.PUSH PRN ×2 (17:13→22:12)
[2018-04-08] MEDS: hydrALAZINE 25 MG Tablet PO SCH ×3 (01:19→17:49)
[2018-04-08] MEDS: Insulin NovoLIN Regular Correctional Sugar Inj SQ SCH ×2 (01:22→06:57)
[2018-04-08 03:54] LABS: Baso # (Auto) 0.1 th/mm3 (0.0-0.2); Baso % (Auto) 1.3 % (0.0-2.0); Eos # (Auto) 0.1 th/mm3 (0.0-0.4); Eos % (Auto) 0.6 % (0.0-4.0); Hematocrit 38.5 % (35.0-46.0); Hemoglobin 13.1 gm/dL (11.6-15.3); Lymph # (Auto) 1.9 th/mm3 (1.0-4.8); Lymph % (Auto) 21.5 % (9.0-44.0); Mean Corpuscular Hemoglobin 31.1 pg (27.0-34.0); Mean Corpuscular Volume 91.3 fL (80.0-100.0); Mean Platelet Volume 8.4 fL (7.0-11.0); Mono % (Auto) 11.4 % (0.0-8.0); Neut # (Auto) 5.9 th/mm3 (1.8-7.7); Neut % (Auto) 65.2 % (16.0-70.0); Platelet Count 187 th/mm3 (150-450); Red Blood Count 4.22 mil/mm3 (4.00-5.30); Red Cell Distribution Width 14.9 % (11.6-17.2)
[2018-04-08 04:23] LABS: Calcium 8.7 mg/dL (8.5-10.1); Carbon Dioxide 23.9 meq/L (21.0-32.0); Magnesium 1.7 mg/dL (1.5-2.5); Potassium 3.7 meq/L (3.5-5.1)
[2018-04-08] MEDS: Chlorhexidine Gluconate 2% 1 Pack (2 Cloths) TOPICAL SCH (05:00)
[2018-04-08] MEDS: Sod Chloride 0.9% Inj 1,000 ML IV.CONT SCH (06:57)
[2018-04-08] MEDS: Polyethylene Glycol 3350 17 GM Packet PO SCH ×2 (08:51→21:19)
[2018-04-08] MEDS: Aspirin 325 MG Tablet PO SCH (08:51)
[2018-04-08] MEDS: Senna/Docusate Sodium 8.6/50 MG Tablet PO SCH ×2 (08:52→21:19)
[2018-04-08] MEDS: Enoxaparin Inj 40 MG/0.4 ML Syringe SQ SCH (09:00)
--- NOTE | 2018-04-08 09:57 | P.PNNS ---
Subjective Interval history: no changes neurologically overnight <Shima Jones - Last Filed: 04/08/18 09:47> Physical Exam Vital signs: Vital Signs 04/07/18 10:00 04/07/18 12:00 04/07/18 12:01 Temperature 98.0 F Pulse Rate 98 H 88 88 Respiratory Rate 24 24 Blood Pressure 155/71 H 157/72 H Pulse Oximetry 99 98 04/07/18 16:00 04/07/18 16:54 04/07/18 19:00 Temperature 98.1 F Pulse Rate 104 H 91 H 112 H Respiratory Rate 28 H 32 H Blood Pressure 181/90 H Pulse Oximetry 99 98 04/07/18 19:01 04/07/18 19:20 04/07/18 20:00 Temperature Pulse Rate 110 H 114 H Respiratory Rate 28 H 33 H Blood Pressure 171/79 H Pulse Oximetry 98 97 97 04/07/18 20:01 04/07/18 21:00 04/07/18 21:01 Temperature Pulse Rate 112 H 107 H 109 H Respiratory Rate 28 H 31 H 30 H Blood Pressure 174/81 H 169/79 H Pulse Oximetry 98 99 99 04/07/18 22:00 04/07/18 22:01 04/07/18 22:08 Temperature Pulse Rate 109 H 109 H 111 H Respiratory Rate 34 H 34 H 32 H Blood Pressure 181/133 H 185/81 H Pulse Oximetry 100 100 100 04/07/18 22:35 04/07/18 23:00 04/07/18 23:05 Temperature Pulse Rate 110 H 106 H 111 H Respiratory Rate 44 H 38 H 35 H Blood Pressure 171/76 H 178/78 H Pulse Oximetry 96 96 96 04/07/18 23:20 04/07/18 23:35 04/07/18 23:50 Temperature Pulse Rate 113 H 120 H 115 H Respiratory Rate 29 H 27 H 27 H Blood Pressure 187/84 H 150/70 H 185/84 H Pulse Oximetry 97 99 95 04/08/18 00:00 04/08/18 00:05 04/08/18 00:20 Temperature Pulse Rate 101 H 99 H 102 H Respiratory Rate 32 H 43 H 23 Blood Pressure 182/62 H 173/76 H Pulse Oximetry 97 97 97 04/08/18 00:35 04/08/18 00:50 04/08/18 01:00 Temperature Pulse Rate 103 H 97 H 94 H Respiratory Rate 24 28 H 28 H Blood Pressure 175/81 H 174/79 H Pulse Oximetry 94 L 96 97 04/08/18 01:05 04/08/18 01:20 04/08/18 01:35 Temperature Pulse Rate 93 H 109 H 105 H Respiratory Rate 29 H 32 H 26 H Blood Pressure 173/79 H 175/80 H 172/77 H Pulse Oximetry 97 98 97 04/08/18 01:50 04/08/18 02:00 04/08/18 02:05 Temperature Pulse Rate 107 H 106 H 104 H Respiratory Rate 26 H 36 H 41 H Blood Pressure 172/73 H 176/73 H Pulse Oximetry 96 96 96 04/08/18 02:20 04/08/18 02:35 04/08/18 02:50 Temperature Pulse Rate 115 H 117 H 117 H Respiratory Rate 28 H 26 H 33 H Blood Pressure 166/75 H 175/77 H 166/76 H Pulse Oximetry 97 97 97 04/08/18 03:00 04/08/18 03:05 04/08/18 03:20 Temperature Pulse Rate 114 H 114 H 113 H Respiratory Rate 28 H 27 H 42 H Blood Pressure 148/62 H 166/74 H Pulse Oximetry 97 97 97 04/08/18 03:35 04/08/18 03:50 04/08/18 04:00 Temperature Pulse Rate 110 H 109 H 104 H Respiratory Rate 25 H 24 28 H Blood Pressure 162/66 H 160/74 H Pulse Oximetry 97 97 97 04/08/18 04:05 04/08/18 04:20 04/08/18 04:35 Temperature Pulse Rate 107 H 107 H 107 H Respiratory Rate 29 H 26 H 26 H Blood Pressure 156/74 H 174/79 H 180/70 H Pulse Oximetry 97 98 97 04/08/18 04:50 04/08/18 05:00 04/08/18 05:05 Temperature Pulse Rate 107 H 110 H 110 H Respiratory Rate 27 H 26 H 27 H Blood Pressure 172/78 H 168/77 H Pulse Oximetry 99 99 98 04/08/18 05:20 04/08/18 05:35 04/08/18 05:50 Temperature Pulse Rate 100 H 106 H 100 H Respiratory Rate 22 29 H 28 H Blood Pressure 176/80 H 173/79 H 169/79 H Pulse Oximetry 97 97 97 04/08/18 06:00 04/08/18 06:05 04/08/18 06:20 Temperature Pulse Rate 107 H 103 H 97 H Respiratory Rate 50 H 47 H 46 H Blood Pressure 167/78 H 175/82 H Pulse Oximetry 98 98 99 04/08/18 06:35 04/08/18 06:50 04/08/18 07:00 Temperature Pulse Rate 101 H 103 H 100 H Respiratory Rate 27 H 28 H 31 H Blood Pressure 168/73 H 148/71 H Pulse Oximetry 99 99 98 04/08/18 07:31 Temperature Pulse Rate Respiratory Rate Blood Pressure Pulse Oximetry 95 Intake & Output 04/07/18 04/08/18 04/08/18 18:59 06:59 18:59 Intake Total 1200 / 1200 1400 / 1400 Output Total 650 / 650 Balance 1200 / 1200 750 / 750 Weight 79 kg Intake: IV 1200 / 1200 1000 / 1000 NS Inj 1,000 ML @ 84 mls/hr IV. 1000 / 1000 1000 / 1000 CONT .[id number] THEA Rx#:[id number] KCl 20 mEq Premix Inj 20 meq In 200 / 200 100 ml @ 50 mls/hr IV.SIG Q2H PRN Rx#:[id number] Oral 400 / 400 Output: Urine 650 / 650 Other: # Incontinent Voids 3 # Bowel Movements 0 Narrative: Eyes open spontaneously Resting in bed comfortable in no acute distress Pupils equally react facial motor grossly symmetric Mildly aphasic Motor: Right hemiparesis UE 2/5,LE 1/5 Sensory: decreased LT <Shima Jones - Last Filed: 04/08/18 09:47> Vital signs: Vital Signs 04/07/18 16:00 04/07/18 16:54 04/07/18 19:00 Temperature 98.1 F Pulse Rate 104 H 91 H 112 H Respiratory Rate 28 H 32 H Blood Pressure 181/90 H Pulse Oximetry 99 98 04/07/18 19:01 04/07/18 19:20 04/07/18 20:00 Temperature Pulse Rate 110 H 114 H Respiratory Rate 28 H 33 H Blood Pressure 171/79 H Pulse Oximetry 98 97 97 04/07/18 20:01 04/07/18 21:00 04/07/18 21:01 Temperature Pulse Rate 112 H 107 H 109 H Respiratory Rate 28 H 31 H 30 H Blood Pressure 174/81 H 169/79 H Pulse Oximetry 98 99 99 04/07/18 22:00 04/07/18 22:01 04/07/18 22:08 Temperature Pulse Rate 109 H 109 H 111 H Respiratory Rate 34 H 34 H 32 H Blood Pressure 181/133 H 185/81 H Pulse Oximetry 100 100 100 04/07/18 22:35 04/07/18 23:00 04/07/18 23:05 Temperature Pulse Rate 110 H 106 H 111 H Respiratory Rate 44 H 38 H 35 H Blood Pressure 171/76 H 178/78 H Pulse Oximetry 96 96 96 04/07/18 23:20 04/07/18 23:35 04/07/18 23:50 Temperature Pulse Rate 113 H 120 H 115 H Respiratory Rate 29 H 27 H 27 H Blood Pressure 187/84 H 150/70 H 185/84 H Pulse Oximetry 97 99 95 04/08/18 00:00 04/08/18 00:05 04/08/18 00:20 Temperature Pulse Rate 101 H 99 H 102 H Respiratory Rate 32 H 43 H 23 Blood Pressure 182/62 H 173/76 H Pulse Oximetry 97 97 97 04/08/18 00:35 04/08/18 00:50 04/08/18 01:00 Temperature Pulse Rate 103 H 97 H 94 H Respiratory Rate 24 28 H 28 H Blood Pressure 175/81 H 174/79 H Pulse Oximetry 94 L 96 97 04/08/18 01:05 04/08/18 01:20 04/08/18 01:35 Temperature Pulse Rate 93 H 109 H 105 H Respiratory Rate 29 H 32 H 26 H Blood Pressure 173/79 H 175/80 H 172/77 H Pulse Oximetry 97 98 97 04/08/18 01:50 04/08/18 02:00 04/08/18 02:05 Temperature Pulse Rate 107 H 106 H 104 H Respiratory Rate 26 H 36 H 41 H Blood Pressure 172/73 H 176/73 H Pulse Oximetry 96 96 96 04/08/18 02:20 04/08/18 02:35 04/08/18 02:50 Temperature Pulse Rate 115 H 117 H 117 H Respiratory Rate 28 H 26 H 33 H Blood Pressure 166/75 H 175/77 H 166/76 H Pulse Oximetry 97 97 97 04/08/18 03:00 04/08/18 03:05 04/08/18 03:20 Temperature Pulse Rate 114 H 114 H 113 H Respiratory Rate 28 H 27 H 42 H Blood Pressure 148/62 H 166/74 H Pulse Oximetry 97 97 97 04/08/18 03:35 04/08/18 03:50 04/08/18 04:00 Temperature Pulse Rate 110 H 109 H 104 H Respiratory Rate 25 H 24 28 H Blood Pressure 162/66 H 160/74 H Pulse Oximetry 97 97 97 04/08/18 04:05 04/08/18 04:20 04/08/18 04:35 Temperature Pulse Rate 107 H 107 H 107 H Respiratory Rate 29 H 26 H 26 H Blood Pressure 156/74 H 174/79 H 180/70 H Pulse Oximetry 97 98 97 04/08/18 04:50 04/08/18 05:00 04/08/18 05:05 Temperature Pulse Rate 107 H 110 H 110 H Respiratory Rate 27 H 26 H 27 H Blood Pressure 172/78 H 168/77 H Pulse Oximetry 99 99 98 04/08/18 05:20 04/08/18 05:35 04/08/18 05:50 Temperature Pulse Rate 100 H 106 H 100 H Respiratory Rate 22 29 H 28 H Blood Pressure 176/80 H 173/79 H 169/79 H Pulse Oximetry 97 97 97 04/08/18 06:00 04/08/18 06:05 04/08/18 06:20 Temperature Pulse Rate 107 H 103 H 97 H Respiratory Rate 50 H 47 H 46 H Blood Pressure 167/78 H 175/82 H Pulse Oximetry 98 98 99 04/08/18 06:35 04/08/18 06:50 04/08/18 07:00 Temperature Pulse Rate 101 H 103 H 100 H Respiratory Rate 27 H 28 H 31 H Blood Pressure 168/73 H 148/71 H Pulse Oximetry 99 99 98 04/08/18 07:31 Temperature Pulse Rate Respiratory Rate Blood Pressure Pulse Oximetry 95 Intake & Output 04/07/18 04/08/18 04/08/18 18:59 06:59 18:59 Intake Total 1200 / 1200 1400 / 1400 Output Total 650 / 650 Balance 1200 / 1200 750 / 750 Weight 79 kg Intake: IV 1200 / 1200 1000 / 1000 NS Inj 1,000 ML @ 84 mls/hr IV. 1000 / 1000 1000 / 1000 CONT .[id number] [facility] Rx#:[id number] KCl 20 mEq Premix Inj 20 meq In 200 / 200 100 ml @ 50 mls/hr IV.SIG Q2H PRN Rx#:[id number] Oral 400 / 400 Output: Urine 650 / 650 Other: # Incontinent Voids 3 # Bowel Movements 0 <Joey Alexander - Last Filed: 04/08/18 12:30> Assessment and Plan - Plan 73 yo female with progressively worsening right sided weakness c/w stroke in evolution CTA shows incidental left distal anterior cerebral aneurysm, doubt focal SAH Neuro exam a little worse, than on admission. MRI pending - needs full stroke work-up: 2d echo lipids a1c tele PT/OT/ST stroke navigator - permissive hypertension, sbp 160 - 180 mmHg - agree with hydralazine, labetalol for bp control - continue frequent neuro checks - start ASA and Lovenox for DVT prophylaxis - advance diet - SCDs Will continue to follow 04/07/2018 patient remains neurologically stable with dense right hemiparesis, continue with critical care management stroke rehab with physical, occupation, and speech therapy recommend follow up with Dr. Avery at [facility] in 2-3 months for aneurysm follow up will follow 04/08/2018 neuro exam stable, continue present management as above continue stroke rehab discussed with family in room will sign off, please call prn <Shima Jones - Last Filed: 04/08/18 09:47> - Attending Attestation Remains Neurologically stable I have personally seen and examined the patient, reviewed pertinent labs and imaging studies with the Neurosurgery team. I agree with Ms. Jones's ( Neurosurgery PA), assessment as well as plan of care. <Joey Alexander - Last Filed: 04/08/18 12:30> Procedures - Arterial Line Size (Gauge): 20 <Sihma Jones - Last Filed: 04/08/18 09:47>
--- NOTE | 2018-04-08 10:07 | P.PNIM ---
Subjective Interval history: pt trying to eat daughter present Physical Exam Vital signs: Last Vital Signs Temp 98.1 F 04/07/18 16:54 Pulse 100 H 04/08/18 07:00 Resp 31 H 04/08/18 07:00 BP 148/71 H 04/08/18 06:50 Pulse Ox 95 04/08/18 07:31 Narrative: heart reg lung cta abd s/nt ext no edema right ue/le hemiparesis Results Labs CBC & Chem 7: 04/08/18 03:32 04/08/18 03:32 Assessment and Plan Assessment (1) Acute CVA (cerebrovascular accident): Code(s): I63.9 - Cerebral infarction, unspecified Status: Acute Plan: 73yF with history of HTN but does not take any meds who presented with new acute onset right arm and leg weakness and mild confusion to OSH. Found to have hyperdense area on head CT concerning for aneurysm vs. localized spontaneous SAH. 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 Transferred emergently to [facility] for neurosurgery consultation. On arrival to our facility, she had a SBP of 203 mmHg. She was immediately started on nicardipine infusion with prn labetalol to bring this under 130 mmHg. Patient denies chest pain, sob, fever, chills, nausea, vomiting. does state her sister had a brain aneurysm that ruptured. remainder ROS negative. 04/05: CTA brain and neck repeated and reviewed with Dr. Alexander. No evidence of aneurysm rupture. No evidence of large vessel occlusion to be amenable to endovascular intervention for stroke. Not a candidate for systemic TPA due to time of onset. I discussed CT venous phase with Dr. Piper and there is no definite dural venous thrombosis. Neither presence of aneurysm or location of possible dural venous thrombosis would seem to explain her clinical symptoms. Will obtain MRI and MRV. In view of worsening clinical condition when BP was lowered to 112, will allow permissive hypertension. Although would typically allow permissive hypertension up to 220/120 in acute ischemic stroke, in this circumstance the risk of aneurysm rupture must be considered. In consideration of risk/benefit, would allow permissive hypertension in SBP 160-180 range (per discussion with ). 04/06: still weak on the right. permissive hypertension. MRI left frontoparietal YAQUELIN acute cva 04/07: doing well. stable for transfer to the floor. liberalize blood pressure goals. needs aggressive PT. probable inpatient rehab, awaiting PT recommendations. echo wnl. started on statin today. patient denies complaints and ROS otherwise negative. - Assessment and Plan Plan: Assessment: 73yF with new right-sided weakness and left YAQUELIN distribution CVA, also with YAQUELIN aneurysm. Right-sided hemiparesis left 5.3mm YAQUELIN aneurysm Hypertensive emergency transfer from ICU plan to transfer to [place] in next 24 to 48hr if bp stable cont scheduled bp meds and adjust as needed . prn control asa/statin NSG following and planning [facility] referral in 2-3m for the aneurysm dc ivf. dc ssi oob with assist PT/OT/ST dvt prophylaxis updated daughter at bedside. Procedures Arterial Line Size (Gauge): 20
--- NOTE | 2018-04-08 20:03 | P.CONREH ---
History of Present Illness Primary Care Provider: Audrey Vines is a 73-year-old female who was admitted to [facility] with right upper and lower extremity weakness and confusion. Systolic blood pressure 203 and patient was started on nicardipine infusion. Head CT 04/05/18 was negative. Head CTA 04/05/18 showed no aneurysm or dissection. No discrete occlusions. Neurosurgery consult notes incidental left distal anterior cerebral aneurysm. Neck CTA 04/05/18 was negative for carotid stenosis within the neck. No aneurysm or dissection. Both vertebral arteries were patent. Brain MRI 04/06/18 showed multifocal acute infarcts in the left frontoparietal parafalcine region consistent with infarction of left anterior cerebral artery distribution. No midline shift or mass-effect. MRV showed no venous thrombosis 04/06/18. Review of Systems ROS Unobtainable: other PMFSH History History Provided By: Patient, Family Member and Medical Record Medical History Medical History History of hysterectomy (Acute) Macular degeneration (Acute) Medications and Allergies Allergies Allergy/AdvReac Type Severity Reaction Status Date / Time morphine Allergy Severe NAUSEA/VOMI Unverified 10/02/16 13:37 TING tobramycin Allergy Severe Swelling Unverified 10/02/16 13:37 Active Medications: Active Medications Acetaminophen (Tylenol) 650 mg PO Q6H PRN PRN Reason: TEMPERATURE > 101 F Albuterol (Duoneb Neb (Prn)) 1 ampul NEB Q2HR NEB PRN PRN Reason: WHEEZING Aspirin (Aspirin) 325 mg PO DAILY [facility] Last Admin: 04/08/18 08:51 Dose: 325 mg Atorvastatin Calcium (Lipitor) 80 mg PO DAILY [facility] Last Admin: 04/08/18 08:51 Dose: 80 mg Bisacodyl (Dulcolax Supp) 10 mg RECTAL DAILY PRN PRN Reason: if no BM in last 24h Chlorhexidine Gluconate (Chlorhexidine 2% Cloth) 3 pack TOPICAL DAILY@0400 [facility] Stop: 04/11/18 03:59 Last Admin: 04/08/18 05:00 Dose: 3 pack Chlorhexidine Gluconate (Chlorhexidine 2% Cloth) 3 pack TOPICAL DAILY@0400 PRN PRN Reason: Extra cloth needed Stop: 04/11/18 03:59 Clonidine HCl (Catapres) 0.1 mg PO Q4HR PRN PRN Reason: sbp > 170 Dextrose (D50w Vial) 50 ml IV.PUSH UNSCH PRN PRN Reason: PER HYPOGLYCEMIA PROTOCOL Enalaprilat (Vasotec Inj) 1.25 mg IV.PUSH Q6H PRN PRN Reason: sbp > 180 Enoxaparin Sodium (Lovenox Inj) 40 mg SQ Q24H [facility] Last Admin: 04/08/18 09:00 Dose: 40 mg Glucagon (Glucagon Inj) 1 mg OTHER PRN PRN PRN Reason: for Hypoglycemia Protocol Hydralazine HCl (Apresoline) 50 mg PO Q8H [facility] Last Admin: 04/08/18 17:49 Dose: 50 mg Lactulose (Lactulose Liq) 30 ml PO BID [facility] Last Admin: 04/08/18 08:51 Dose: 30 ml Metoprolol Tartrate (Lopressor Inj) 5 mg IV.PUSH Q5M PRN PRN Reason: HR > 110 Ondansetron HCl (Zofran Inj) 4 mg IV.PUSH Q6H PRN PRN Reason: NAUSEA OR VOMITING Last Admin: 04/07/18 22:24 Dose: 4 mg Polyethylene Glycol (Miralax) 17 gm PO BID [facility] Last Admin: 04/08/18 08:51 Dose: 17 gm Senna/Docusate Sodium (Karen-Colace) 1 tab PO BID [facility] Last Admin: 04/08/18 08:52 Dose: 1 tab Sodium Chloride (Ns Flush) 2 ml IV.FLUSH UNSCH PRN PRN Reason: FLUSH AFTER USING IV ACCESS Last Admin: 04/08/18 08:54 Dose: 2 ml Exam Physical Examination Vital Signs / I&O: Vital Signs 04/07/18 21:00 04/07/18 21:01 04/07/18 22:00 Temperature Pulse Rate 107 H 109 H 109 H Respiratory Rate 31 H 30 H 34 H Blood Pressure 169/79 H Pulse Oximetry 99 99 100 04/07/18 22:01 04/07/18 22:08 04/07/18 22:35 Temperature Pulse Rate 109 H 111 H 110 H Respiratory Rate 34 H 32 H 44 H Blood Pressure 181/133 H 185/81 H 171/76 H Pulse Oximetry 100 100 96 04/07/18 23:00 04/07/18 23:05 04/07/18 23:20 Temperature Pulse Rate 106 H 111 H 113 H Respiratory Rate 38 H 35 H 29 H Blood Pressure 178/78 H 187/84 H Pulse Oximetry 96 96 97 04/07/18 23:35 04/07/18 23:50 04/08/18 00:00 Temperature Pulse Rate 120 H 115 H 101 H Respiratory Rate 27 H 27 H 32 H Blood Pressure 150/70 H 185/84 H Pulse Oximetry 99 95 97 04/08/18 00:05 04/08/18 00:20 04/08/18 00:35 Temperature Pulse Rate 99 H 102 H 103 H Respiratory Rate 43 H 23 24 Blood Pressure 182/62 H 173/76 H 175/81 H Pulse Oximetry 97 97 94 L 04/08/18 00:50 04/08/18 01:00 04/08/18 01:05 Temperature Pulse Rate 97 H 94 H 93 H Respiratory Rate 28 H 28 H 29 H Blood Pressure 174/79 H 173/79 H Pulse Oximetry 96 97 97 04/08/18 01:20 04/08/18 01:35 04/08/18 01:50 Temperature Pulse Rate 109 H 105 H 107 H Respiratory Rate 32 H 26 H 26 H Blood Pressure 175/80 H 172/77 H 172/73 H Pulse Oximetry 98 97 96 04/08/18 02:00 04/08/18 02:05 04/08/18 02:20 Temperature Pulse Rate 106 H 104 H 115 H Respiratory Rate 36 H 41 H 28 H Blood Pressure 176/73 H 166/75 H Pulse Oximetry 96 96 97 04/08/18 02:35 04/08/18 02:50 04/08/18 03:00 Temperature Pulse Rate 117 H 117 H 114 H Respiratory Rate 26 H 33 H 28 H Blood Pressure 175/77 H 166/76 H Pulse Oximetry 97 97 97 04/08/18 03:05 04/08/18 03:20 04/08/18 03:35 Temperature Pulse Rate 114 H 113 H 110 H Respiratory Rate 27 H 42 H 25 H Blood Pressure 148/62 H 166/74 H 162/66 H Pulse Oximetry 97 97 97 04/08/18 03:50 04/08/18 04:00 04/08/18 04:05 Temperature Pulse Rate 109 H 104 H 107 H Respiratory Rate 24 28 H 29 H Blood Pressure 160/74 H 156/74 H Pulse Oximetry 97 97 97 04/08/18 04:20 04/08/18 04:35 04/08/18 04:50 Temperature Pulse Rate 107 H 107 H 107 H Respiratory Rate 26 H 26 H 27 H Blood Pressure 174/79 H 180/70 H 172/78 H Pulse Oximetry 98 97 99 04/08/18 05:00 04/08/18 05:05 04/08/18 05:20 Temperature Pulse Rate 110 H 110 H 100 H Respiratory Rate 26 H 27 H 22 Blood Pressure 168/77 H 176/80 H Pulse Oximetry 99 98 97 04/08/18 05:35 04/08/18 05:50 04/08/18 06:00 Temperature Pulse Rate 106 H 100 H 107 H Respiratory Rate 29 H 28 H 50 H Blood Pressure 173/79 H 169/79 H Pulse Oximetry 97 97 98 04/08/18 06:05 04/08/18 06:20 04/08/18 06:35 Temperature Pulse Rate 103 H 97 H 101 H Respiratory Rate 47 H 46 H 27 H Blood Pressure 167/78 H 175/82 H 168/73 H Pulse Oximetry 98 99 99 04/08/18 06:50 04/08/18 07:00 04/08/18 07:31 Temperature Pulse Rate 103 H 100 H Respiratory Rate 28 H 31 H Blood Pressure 148/71 H Pulse Oximetry 99 98 95 04/08/18 08:00 04/08/18 12:00 04/08/18 12:35 Temperature 99.0 F Pulse Rate 94 H 100 H Respiratory Rate Blood Pressure 166/79 H Pulse Oximetry 99 04/08/18 12:50 04/08/18 13:05 04/08/18 13:20 Temperature Pulse Rate 85 112 H 113 H Respiratory Rate 23 20 19 Blood Pressure 162/73 H 179/81 H Pulse Oximetry 04/08/18 13:35 04/08/18 13:50 04/08/18 14:00 Temperature Pulse Rate 112 H 110 H 110 H Respiratory Rate 20 Blood Pressure 154/100 H 160/71 H Pulse Oximetry 04/08/18 14:05 04/08/18 14:20 04/08/18 14:35 Temperature Pulse Rate 107 H 108 H 110 H Respiratory Rate 21 20 Blood Pressure 151/66 H 163/71 H 163/74 H Pulse Oximetry 04/08/18 14:50 04/08/18 15:05 04/08/18 15:20 Temperature Pulse Rate 108 H 107 H 106 H Respiratory Rate 20 23 Blood Pressure 154/71 H 160/72 H 156/74 H Pulse Oximetry 04/08/18 15:35 04/08/18 15:50 04/08/18 16:00 Temperature 100.8 F H Pulse Rate 103 H 90 100 H Respiratory Rate 23 Blood Pressure 161/79 H 157/76 H Pulse Oximetry 04/08/18 16:05 04/08/18 16:20 04/08/18 16:35 Temperature Pulse Rate 95 H 96 H 98 H Respiratory Rate 23 21 Blood Pressure 149/67 H 162/78 H Pulse Oximetry 04/08/18 16:50 04/08/18 17:05 04/08/18 17:20 Temperature Pulse Rate 97 H 93 H 90 Respiratory Rate 20 20 17 Blood Pressure 167/74 H 168/79 H Pulse Oximetry 04/08/18 17:35 04/08/18 17:50 04/08/18 18:00 Temperature Pulse Rate 90 95 H 96 H Respiratory Rate 19 17 19 Blood Pressure Pulse Oximetry 04/08/18 18:05 04/08/18 18:20 Temperature Pulse Rate 105 H 116 H Respiratory Rate 22 23 Blood Pressure 164/73 H Pulse Oximetry Intake & Output 04/08/18 04/08/18 04/09/18 06:59 18:59 06:59 Intake Total 1400 / 1400 1490 / 1490 Output Total 650 / 650 1000 / 1000 Balance 750 / 750 490 / 490 Weight 79 kg Intake: IV 1000 / 1000 530 / 530 NS Inj 1,000 ML @ 84 mls/hr IV. 1000 / 1000 530 / 530 CONT .[id number] [facility] Rx#:[id number] Oral 400 / 400 960 / 960 Output: Urine 650 / 650 1000 / 1000 Other: Date of Last Bowel Movement 04/08/18 # Bowel Movements 1 Intake & Output 04/06/18 04/07/18 04/08/18 04/09/18 06:59 06:59 06:59 06:59 Intake Total 500 / 500 2600 / 2600 2600 / 2600 1490 / 1490 Output Total 150 / 150 300 / 300 650 / 650 1000 / 1000 Balance 350 / 350 2300 / 2300 1950 / 1950 490 / 490 Weight 74.4 kg 77.7 kg 79 kg General: No acute distress and Other (Awake and alert; family is at bedside) Respiratory: Lungs CTA, BS equal and Symmetrical expansion Gastrointestinal: Positive bowel sounds, Non-distended and Non-tender Date of Last Bowel Movement: 04/08/18 Cardiovascular: Normal rate and Regular rhythm Skin: No rash Musculoskeletal: ROM (Within functional limits) and Swelling (No distal lower extremity edema) Psychiatric: Cooperative Neurologic Orientation: oriented to: Self and unable to assess: Place, Time and Situation Neurologic: Pupils (PERRLA), EOM (Tracks right and left), Visual moya ( Grossly intact), Facial symmetry (Right facial droop), Speech (Aphasic; patient is able to follow 50% of simple gestured one-step commands) and Neglect (Left gaze preference) Motor: Right Upper Extremity (2/5), Left Upper Extremity (5/5), Right Lower Extremity (1-2/5 Smillie; 0 distally) and Left Lower Extremity (5/5) Sensory: Unable to accurately assess Babinski: Positive (Right) Clonus: Negative Results Labs CBC & Chem 7: 04/09/18 04:42 04/09/18 04:42 Assessment and Plan (1) Acute CVA (cerebrovascular accident): Status: Acute Code(s): I63.9 - Cerebral infarction, unspecified Plan Assessment: 1. Multifocal acute infarcts in the left frontoparietal parafalcine region consistent with infarction of left anterior cerebral artery distribution. 2. Right hemiparesis 3. Aphasia 4. Hypertension Recommendations: 1. Patient is progressing with physical therapy for mobility and now mod assist of 2 for transfers with physical therapy. Would continue to mobilize anticipating that patient should progress 2. Occupational Therapy is addressing ADLs and now minimal assist for feeding and maximal assistance for remainder of self-care ADLs 3. Speech therapy has evaluated swallow and patient is tolerating regular diet. Communication/cognition being addressed 4. Continue to reposition and monitor skin carefully 5. Protect right shoulder during transfers to prevent injury 6. Protect right ankle during transfers and weightbearing to prevent injury 7. Currently on Lovenox and SCDs in place for VT prophylaxis 8. Patient will benefit from ongoing inpatient rehabilitation at discharge and case management has begun referral process. Prior to admission patient was independent with all mobility and ADLs. Family is available to assist at discharge. Thank you for this consult Procedures Arterial Line Size (Gauge): 20
[2018-04-09] MEDS: hydrALAZINE 25 MG Tablet PO SCH ×3 (01:25→18:11)
[2018-04-09] MEDS: Chlorhexidine Gluconate 2% 1 Pack (2 Cloths) TOPICAL SCH (04:00)
[2018-04-09 05:56] LABS: Baso # (Auto) 0.1 th/mm3 (0.0-0.2); Baso % (Auto) 0.6 % (0.0-2.0); Eos % (Auto) 0.4 % (0.0-4.0); Hematocrit 37.7 % (35.0-46.0); Hemoglobin 12.8 gm/dL (11.6-15.3); Lymph # (Auto) 2.1 th/mm3 (1.0-4.8); Lymph % (Auto) 21.3 % (9.0-44.0); Mean Corpuscular HGB Conc 34.1 % (32.0-36.0); Mean Corpuscular Volume 91.1 fL (80.0-100.0); Mean Platelet Volume 9.5 fL (7.0-11.0); Mono # (Auto) 1.1 th/mm3 (0.0-0.9); Mono % (Auto) 11.3 % (0.0-8.0); Neut # (Auto) 6.4 th/mm3 (1.8-7.7); Neut % (Auto) 66.4 % (16.0-70.0); Platelet Count 171 th/mm3 (150-450); Red Blood Count 4.14 mil/mm3 (4.00-5.30); Red Cell Distribution Width 14.6 % (11.6-17.2); White Blood Count 9.6 th/mm3 (4.0-11.0)
[2018-04-09 06:19] LABS: Calcium 8.8 mg/dL (8.5-10.1); Carbon Dioxide 24.6 meq/L (21.0-32.0); Potassium 3.9 meq/L (3.5-5.1)
[2018-04-09 06:57] LABS: Platelet Estimate Normal (Normal); Platelet Morphology Normal (Normal)
[2018-04-09] MEDS: Senna/Docusate Sodium 8.6/50 MG Tablet PO SCH ×2 (09:30→21:05)
[2018-04-09] MEDS: Enoxaparin Inj 40 MG/0.4 ML Syringe SQ SCH (09:30)
[2018-04-09] MEDS: Aspirin 325 MG Tablet PO SCH (09:30)
--- NOTE | 2018-04-09 09:38 | XR ---
EXAM DATE: 04/09/2018 8:32 AM EST AGE/SEX: 73 years / Female INDICATIONS: Fever. CLINICAL DATA: This is the patient's subsequent encounter. Patient reports that signs and symptoms h ave been present for 1 day and indicates a pain score of Nonresponsive. MEDICAL/SURGICAL HISTORY: . Hyperparathyroidism. . Hysterectomy. COMPARISON: No prior exams available for comparison. FINDINGS: The heart is enlarged. There is mild interstitial prominence probably on the basis of inspiration. There is no evidence consolidation, pleural effusion or pneumothorax The portion of the bony skeleton visualized is unremarkable. CONCLUSION: Mild prominence the cardiac silhouette without inflammatory changes. Electronically signed by: James Raya MD Board Certified Radiologist 04/09/2018 8:44 AM EST
--- NOTE | 2018-04-09 12:01 | P.PNIM ---
Subjective Interval history: pt had fever overnight denies aspiration. denies any dysuria no diarrhea no vomiting or abdomen pain. Physical Exam Vital signs: Last Vital Signs Temp 99.5 F 04/09/18 01:56 Pulse 106 H 04/09/18 04:50 Resp 26 H 04/09/18 04:50 BP 168/76 H 04/09/18 04:50 Pulse Ox 99 04/08/18 20:05 Narrative: heart reg lung cta abd s/nt ext no edema right ue/le hemiparesis Results Labs CBC & Chem 7: 04/09/18 04:42 04/09/18 04:42 Assessment and Plan Assessment (1) Acute CVA (cerebrovascular accident): Code(s): I63.9 - Cerebral infarction, unspecified Status: Acute Plan: 73yF with history of HTN but does not take any meds who presented with new acute onset right arm and leg weakness and mild confusion to OSH. Found to have hyperdense area on head CT concerning for aneurysm vs. localized spontaneous SAH. 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 Transferred emergently to [facility] for neurosurgery consultation. On arrival to our facility, she had a SBP of 203 mmHg. She was immediately started on nicardipine infusion with prn labetalol to bring this under 130 mmHg. Patient denies chest pain, sob, fever, chills, nausea, vomiting. does state her sister had a brain aneurysm that ruptured. remainder ROS negative. 04/05: CTA brain and neck repeated and reviewed with Dr. Alexander. No evidence of aneurysm rupture. No evidence of large vessel occlusion to be amenable to endovascular intervention for stroke. Not a candidate for systemic TPA due to time of onset. I discussed CT venous phase with Dr. Piper and there is no definite dural venous thrombosis. Neither presence of aneurysm or location of possible dural venous thrombosis would seem to explain her clinical symptoms. Will obtain MRI and MRV. In view of worsening clinical condition when BP was lowered to 112, will allow permissive hypertension. Although would typically allow permissive hypertension up to 220/120 in acute ischemic stroke, in this circumstance the risk of aneurysm rupture must be considered. In consideration of risk/benefit, would allow permissive hypertension in SBP 160-180 range (per discussion with ). 04/06: still weak on the right. permissive hypertension. MRI left frontoparietal YAQUELIN acute cva 04/07: doing well. stable for transfer to the floor. liberalize blood pressure goals. needs aggressive PT. probable inpatient rehab, awaiting PT recommendations. echo wnl. started on statin today. patient denies complaints and ROS otherwise negative. - Assessment and Plan Plan: Assessment: 73yF with new right-sided weakness and left YAQUELIN distribution CVA, also with YAQUELIN aneurysm. Right-sided hemiparesis left 5.3mm YAQUELIN aneurysm Hypertensive emergency transfer from ICU plan to transfer to [place] in next 24 hr if bp stable cont hydralazine. add procardia for as bp over 190 last night had fever overnight. check cxr and u/a. incentive spirometer. check swallow eval. asa/statin NSG following and planning [facility] referral in 2-3m for the aneurysm oob with assist PT/OT/ST dvt prophylaxis Procedures Arterial Line Size (Gauge): 20
[2018-04-09 13:21] LABS: Bacteria,Urine Rare /hpf; Bilirubin,Urine Negative (Negative); Clarity,Urine Clear (Clear); Color,Urine Yellow (Yellw/Straw); Glucose,Urine (UA) Negative (Negative); Leukocyte Esterase,Urine Negative (Negative); Nitrite,Urine Negative (Negative); Squamous Epithelial Cell,Urine <1 /hpf (0-5)
[2018-04-10] MEDS: hydrALAZINE 25 MG Tablet PO SCH ×2 (02:22→09:42)
[2018-04-10] MEDS: Chlorhexidine Gluconate 2% 1 Pack (2 Cloths) TOPICAL SCH (04:32)
[2018-04-10 08:33] LABS: Baso # (Auto) 0.1 th/mm3 (0.0-0.2); Baso % (Auto) 0.7 % (0.0-2.0); Eos # (Auto) 0.1 th/mm3 (0.0-0.4); Eos % (Auto) 0.8 % (0.0-4.0); Hematocrit 36.6 % (35.0-46.0); Hemoglobin 12.2 gm/dL (11.6-15.3); Lymph # (Auto) 1.8 th/mm3 (1.0-4.8); Lymph % (Auto) 22.2 % (9.0-44.0); Mean Corpuscular HGB Conc 33.4 % (32.0-36.0); Mean Corpuscular Hemoglobin 30.3 pg (27.0-34.0); Mean Corpuscular Volume 90.6 fL (80.0-100.0); Mean Platelet Volume 9.1 fL (7.0-11.0); Mono % (Auto) 12.4 % (0.0-8.0); Neut # (Auto) 5.2 th/mm3 (1.8-7.7); Neut % (Auto) 63.9 % (16.0-70.0); Platelet Count 175 th/mm3 (150-450); Red Blood Count 4.05 mil/mm3 (4.00-5.30); Red Cell Distribution Width 14.2 % (11.6-17.2); White Blood Count 8.2 th/mm3 (4.0-11.0)
[2018-04-10 09:08] LABS: Calcium 8.7 mg/dL (8.5-10.1); Carbon Dioxide 26.9 meq/L (21.0-32.0); Magnesium 2.1 mg/dL (1.5-2.5); Phosphorus 2.6 mg/dL (2.5-4.9); Potassium 3.7 meq/L (3.5-5.1)
[2018-04-10] MEDS: Senna/Docusate Sodium 8.6/50 MG Tablet PO SCH (09:42)
[2018-04-10] MEDS: Enoxaparin Inj 40 MG/0.4 ML Syringe SQ SCH (09:43)
[2018-04-10] MEDS: Aspirin 325 MG Tablet PO SCH (09:43)
[2018-04-10 09:50] VITALS: RESP 20; TEMP 98.9
--- NOTE | 2018-04-10 12:05 | P.PNIM ---
Subjective Interval history: eager for dc to rehab Physical Exam Vital signs: Last Vital Signs Temp 98.9 F 04/10/18 08:50 Pulse 85 04/10/18 08:50 Resp 20 04/10/18 08:50 BP 141/58 H 04/10/18 08:50 Pulse Ox 94 L 04/10/18 08:50 Narrative: heart reg lung cta abd s/nt ext no edema right ue/le hemiparesis Results Labs CBC & Chem 7: 04/10/18 06:50 04/10/18 06:50 Assessment and Plan Assessment (1) Acute CVA (cerebrovascular accident): Code(s): I63.9 - Cerebral infarction, unspecified Status: Acute Plan: 73yF with history of HTN but does not take any meds who presented with new acute onset right arm and leg weakness and mild confusion to OSH. Found to have hyperdense area on head CT concerning for aneurysm vs. localized spontaneous SAH. 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 Transferred emergently to [facility] for neurosurgery consultation. On arrival to our facility, she had a SBP of 203 mmHg. She was immediately started on nicardipine infusion with prn labetalol to bring this under 130 mmHg. Patient denies chest pain, sob, fever, chills, nausea, vomiting. does state her sister had a brain aneurysm that ruptured. remainder ROS negative. 04/05: CTA brain and neck repeated and reviewed with Dr. Alexander. No evidence of aneurysm rupture. No evidence of large vessel occlusion to be amenable to endovascular intervention for stroke. Not a candidate for systemic TPA due to time of onset. I discussed CT venous phase with Dr. Piper and there is no definite dural venous thrombosis. Neither presence of aneurysm or location of possible dural venous thrombosis would seem to explain her clinical symptoms. Will obtain MRI and MRV. In view of worsening clinical condition when BP was lowered to 112, will allow permissive hypertension. Although would typically allow permissive hypertension up to 220/120 in acute ischemic stroke, in this circumstance the risk of aneurysm rupture must be considered. In consideration of risk/benefit, would allow permissive hypertension in SBP 160-180 range (per discussion with ). 04/06: still weak on the right. permissive hypertension. MRI left frontoparietal YAQUELIN acute cva 04/07: doing well. stable for transfer to the floor. liberalize blood pressure goals. needs aggressive PT. probable inpatient rehab, awaiting PT recommendations. echo wnl. started on statin today. patient denies complaints and ROS otherwise negative. - Assessment and Plan Plan: Assessment: 73yF with new right-sided weakness and left YAQUELIN distribution CVA, also with YAQUELIN aneurysm. Right-sided hemiparesis left 5.3mm YAQUELIN aneurysm Hypertensive emergency bp stable cont hydralazine and procardia asa/statin NSG following and planning [facility] referral in 2-3m for the aneurysm oob with assist PT/OT/ST dvt prophylaxis [place] today Procedures Arterial Line Size (Gauge): 20
[2018-04-10 13:01] VITALS: BP 130/60; PULSE 96; O2SAT 96
== END 2018-04-10 17:25 | DRG 65 ==
LOC: N03 17:07 → N05 04-09 20:58
PROVIDERS: ADMIT Hospitalist; ATTEND Hospitalist
CPT/HCPCS: 36556; 70450; 70496; 70498; 70545; 70551; 71010; 71045; 80048; 80061; 81001; 82948; 82962; 83036; 83735; 84100; 85025; 87086; 92507; 92523; 92526; 92610; 93306; 94150; 94640; 94650; 94651; 94668; 97110; 97163; 97167; 97530; 97535; A9585; G0195; J0360; J1650; J2405; J3480; J7030; J7050; Q9967